=== PATIENT | male | born 1960 | race Caucasian/White ===

== ENCOUNTER 2017-11-25 10:33 | Inpatient (IN) | payer OTHER ==
[~2017-11-25] VITALS: Ht 185.4 cm; Wt 124.7 kg
[~2017-11-25 10:33] MED LIST: PHEN100C70; TOPI25TA84; [UNRECOGNIZED DRUG - CODE]
[2017-11-25 11:39] LABS: Eosinophils # (auto) 0.1 uL; Hemoglobin 17.4 g/dL (13.5-17.5)
[2017-11-25 11:41] LABS: Basophils # (auto) 0 uL; Basophils % (auto) 0.3 % (0.0-2.0); Eosinophils % (auto) 1.2 % (0.0-7.0); Lymphocytes # (auto) 0.7 uL; Lymphocytes % (auto) 14.1 % (10.0-50.0); Mean Corpuscular Hemoglobin 34.4 pg (28.0-32.0); Mean Corpuscular Hgb Conc. 34.1 g/dL (32.0-36.0); Mean Corpuscular Volume 100.9 fL (80.0-100.0); Monocytes # (auto) 0.6 uL; Monocytes % (auto) 11.1 % (0.0-12.0); Neutrophils # (auto) 3.7 uL; Neutrophils % (auto) 73.3 % (37.0-80.0); Nucleated Red Blood Cells % 0.1 %; Platelet Count (auto) 125 10^3/uL (140-450); Red Blood Cells 5.05 10^6/uL (4.5-5.90); Red Cell Distribution Width 17.2 % (11.8-14.3)
[2017-11-25 12:23] LABS: Alanine Aminotransferase 31 U/L (16-61); Albumin 3.7 g/dL (3.4-5.0); Alkaline Phosphatase 176 U/L (45-117); Anion Gap 8 (5-15); Aspartate Aminotransferase 29 U/L (15-37); BUN/Creatinine Ratio 12.1; Bilirubin, Total 0.4 mg/dL (0.2-1.0); Blood Urea Nitrogen 7 mg/dL (7-18); Calcium 8.8 mg/dL (8.5-10.1); Carbon Dioxide 21 mmol/L (21-32); Chloride 109 mmol/L (98-107); GFR African American 185 mL/min; GFR Non-African American 153 mL/min; Glucose 102 mg/dL (74-106); Potassium 3.8 mmol/L (3.5-5.1); Sodium 138 mmol/L (136-145); Total Protein 7.9 g/dL (6.4-8.2)
[2017-11-25] MEDS ORDERED: SODIUM CHLORIDE 0.9% 1,000 ML IVB ONE (13:14)
[2017-11-25 15:50] LABS: Urine Amorphous Crystal FEW /hpf (None Seen); Urine Bacteria FEW /hpf (None Seen); Urine Blood Negative /uL (Negative); Urine Mucus FEW (None Seen); Urine Specific Gravity 1.016 (1.001-1.035); Urine WBC 90 /hpf (0 - 3)
[2017-11-25] MEDS ORDERED: cefTRIAXone 1GM/10ml IVPUSH 10 ML IV ONE (16:45)
[2017-11-25] MEDS ORDERED: MORPHINE SULFATE 4 MG/ML SYR/VIAL IV PRN (17:00)
[2017-11-25] MEDS ORDERED: TEMAZEPAM 15 MG CAP PO PRN (17:00)
[2017-11-25] MEDS ORDERED: ACETAMINOPHEN 325 MG TAB PO PRN (17:00)
[2017-11-25] MEDS ORDERED: DOCUSATE SOD 100 MG CAP PO PRN (17:00)
[2017-11-25] MEDS ORDERED: ONDANSETRON HCL 4 MG/2 ML VIAL IV PRN (17:00)
[2017-11-25] MEDS ORDERED: HYDROcodone-ACET 5/325MG TAB PO PRN (17:00)
[2017-11-25] MEDS ORDERED: NITROGLYCERIN 0.4 MG SL TAB SL PRN (17:00)
[2017-11-25] MEDS ORDERED: LORazepam 2MG/ML-1ML VIAL IV PRN (17:30)
[2017-11-25] MEDS ORDERED: AZITHROMYCIN 500MG/ 250ML 250 ML IV ONE (17:30)
[2017-11-25 18:30] VITALS: BP 131/88
[2017-11-25] MEDS ORDERED: TOPI100T29 PO (18:49)
[2017-11-25] MEDS ORDERED: PHEN100C70 PO (18:49)
[2017-11-25] MEDS ORDERED: PHEN32.49 PO (18:49)
[2017-11-25 18:50] VITALS: BP 133/85
[2017-11-25 22:00] VITALS: BP 130/81
[2017-11-25] MEDS: PHENobarbital 32.4 MG TAB PO SCH (22:00)
[2017-11-25] MEDS: TOPIRAMATE 100 MG TAB PO SCH (22:00)
[2017-11-25] MEDS: PHENYTOIN SODIUM 100 MG CAP PO SCH (22:00)
[2017-11-25] MEDS: FAMOTIDINE 20 MG TAB PO SCH (22:00)
[2017-11-25] MEDS: SODIUM CHLOR 0.9% PF (SALINE LOCK) 10ML VIAL IV SCH (23:41)
[2017-11-26 04:52] VITALS: BP 137/84
[2017-11-26] MEDS: SODIUM CHLOR 0.9% PF (SALINE LOCK) 10ML VIAL IV SCH ×3 (06:59→22:23)
[2017-11-26 07:27] LABS: Basophils # (auto) 0 uL; Lymphocytes # (auto) 0.4 uL; White Blood Cell 4.5 10^3/uL (4.4-10.8)
[2017-11-26 07:29] LABS: Albumin 3.3 g/dL (3.4-5.0); Bilirubin, Total 0.4 mg/dL (0.2-1.0); Calcium 8.2 mg/dL (8.5-10.1); Total Protein 7.5 g/dL (6.4-8.2)
[2017-11-26 07:31] LABS: Basophils % (auto) 0.3 % (0.0-2.0); Eosinophils # (auto) 0 uL; Eosinophils % (auto) 1.1 % (0.0-7.0); Hematocrit 43.8 % (41.0-53.0); Hemoglobin 15.1 g/dL (13.5-17.5); Lymphocytes % (auto) 7.8 % (10.0-50.0); Mean Corpuscular Hemoglobin 34.5 pg (28.0-32.0); Mean Corpuscular Hgb Conc. 34.5 g/dL (32.0-36.0); Monocytes # (auto) 0.4 uL; Monocytes % (auto) 7.8 % (0.0-12.0); Neutrophils # (auto) 3.8 uL; Platelet Count (auto) 152 10^3/uL (140-450); Red Blood Cells 4.38 10^6/uL (4.5-5.90); Red Cell Distribution Width 16.8 % (11.8-14.3)
[2017-11-26 07:41] LABS: Potassium 4.6 mmol/L (3.5-5.1)
[2017-11-26 08:00] VITALS: BP 142/90
[2017-11-26] MEDS: cefTRIAXone 1GM/10ml IVPUSH 10 ML IV SCH (08:40)
[2017-11-26] MEDS: TOPIRAMATE 100 MG TAB PO SCH ×2 (08:41→22:23)
[2017-11-26] MEDS: MULTIPLE VITAMIN TAB PO SCH (08:41)
[2017-11-26] MEDS: PHENobarbital 32.4 MG TAB PO SCH ×2 (08:41→22:23)
[2017-11-26] MEDS: PHENYTOIN SODIUM 100 MG CAP PO SCH ×2 (08:41→22:23)
[2017-11-26] MEDS: FAMOTIDINE 20 MG TAB PO SCH ×2 (08:41→22:23)
[2017-11-26] MEDS: ENOXAPARIN SOD 40 MG/0.4 ML SYRINGE SC SCH (08:42)
[2017-11-26] MEDS ORDERED: AZITHROMYCIN 500MG/ 250ML 250 ML IV SCH (10:00)
[2017-11-26 12:20] VITALS: BP 121/78
[2017-11-26 17:00] VITALS: BP 149/81
[2017-11-26] MEDS: ALBUTEROL SULF 2.5 MG/0.5ML(0.5%) NEB SOLN NEB SCH (18:54)
[2017-11-26] MEDS: ACETYLCYSTEINE 10 %(100MG/ML) SOL 4ML NEB SCH (18:55)
[2017-11-26 22:00] VITALS: BP 135/83
[2017-11-26 22:46] VITALS: BP 149/81
[2017-11-27 05:00] VITALS: BP 131/78
[2017-11-27] MEDS: SODIUM CHLOR 0.9% PF (SALINE LOCK) 10ML VIAL IV SCH ×3 (05:34→21:30)
[2017-11-27] MEDS: ACETYLCYSTEINE 10 %(100MG/ML) SOL 4ML NEB SCH ×4 (06:18→18:44)
[2017-11-27] MEDS: ALBUTEROL SULF 2.5 MG/0.5ML(0.5%) NEB SOLN NEB SCH ×4 (06:18→18:44)
[2017-11-27 08:00] VITALS: BP 109/64
[2017-11-27] MEDS: MULTIPLE VITAMIN TAB PO SCH (09:42)
[2017-11-27] MEDS: cefTRIAXone 1GM/10ml IVPUSH 10 ML IV SCH (09:42)
[2017-11-27] MEDS: PHENobarbital 32.4 MG TAB PO SCH (09:42)
[2017-11-27] MEDS: PHENYTOIN SODIUM 100 MG CAP PO SCH (09:42)
[2017-11-27] MEDS: ENOXAPARIN SOD 40 MG/0.4 ML SYRINGE SC SCH (09:43)
[2017-11-27] MEDS: TOPIRAMATE 100 MG TAB PO SCH ×2 (09:43→21:31)
[2017-11-27] MEDS: FAMOTIDINE 20 MG TAB PO SCH ×2 (09:43→21:30)
[2017-11-27 12:00] VITALS: BP 127/82
[2017-11-27] MEDS ORDERED: VANCOMYCIN PER PHARMACY 0 MG IV SCH (16:15)
[2017-11-27 16:42] VITALS: BP 126/75
[2017-11-27] MEDS ORDERED: DOXY-216 PO (17:14)
[2017-11-27] MEDS ORDERED: VANCOMYCIN 1,250 MG in D5W 5% 250 ML IV ONE (17:15)
[2017-11-27 17:37] LABS: Phenytoin (Dilantin) 29.4 ug/mL (10-20)
[2017-11-27 20:00] VITALS: BP 121/70
[2017-11-27] MEDS: VANCOMYCIN 1,250 MG in D5W 5% 250 ML IV SCH (20:09)
[2017-11-27 22:00] VITALS: BP 121/70
[2017-11-28 05:00] VITALS: BP 130/86
[2017-11-28] MEDS: VANCOMYCIN 1,250 MG in D5W 5% 250 ML IV SCH ×2 (05:00→13:17)
[2017-11-28] MEDS: SODIUM CHLOR 0.9% PF (SALINE LOCK) 10ML VIAL IV SCH ×2 (06:00→14:09)
[2017-11-28] MEDS: ALBUTEROL SULF 2.5 MG/0.5ML(0.5%) NEB SOLN NEB SCH ×4 (07:02→18:56)
[2017-11-28] MEDS: ACETYLCYSTEINE 10 %(100MG/ML) SOL 4ML NEB SCH ×4 (07:02→18:56)
[2017-11-28 09:00] VITALS: BP 139/79
[2017-11-28 10:22] LABS: Phenytoin (Dilantin) 27.6 ug/mL (10-20)
[2017-11-28] MEDS: FAMOTIDINE 20 MG TAB PO SCH (11:00)
[2017-11-28] MEDS: MULTIPLE VITAMIN TAB PO SCH (11:00)
[2017-11-28] MEDS: ENOXAPARIN SOD 40 MG/0.4 ML SYRINGE SC SCH (11:01)
[2017-11-28] MEDS: TOPIRAMATE 100 MG TAB PO SCH (11:03)
[2017-11-28] MEDS ORDERED: LEVOFLOXACIN 500MG 100 ML IV ONE (12:00)
[2017-11-28 13:00] VITALS: BP 136/74
[2017-11-28 16:50] VITALS: BP 140/87
[2017-11-28] MEDS ORDERED: LEVO-28 PO (17:35)
[2017-11-28 18:02] VITALS: BP 140/87
[2017-11-29] MEDS ORDERED: LEVOFLOXACIN 500MG 100 ML IV SCH (10:00)
== END 2017-11-28 19:35 | disposition home health service (06) | DRG 689 ==
LOC: ER 10:33 → TELE 10:34 → TELE-WESTW 18:37
PROVIDERS: ADMIT Internal Medicine; ATTEND Hospitalist
DX: N39.0 Urinary tract infection, site not specified (principal); G93.41 Metabolic encephalopathy; Z93.0 Tracheostomy status; D69.6 Thrombocytopenia, unspecified; G81.94 Hemiplegia, unspecified affecting left nondominant side; J20.9 Acute bronchitis, unspecified; G40.909 Epilepsy, unspecified, not intractable, without status epilepticus; T42.0X5A Adverse effect of hydantoin derivatives, initial encounter; B95.7 Other staphylococcus as the cause of diseases classified elsewhere; B96.1 Klebsiella pneumoniae [K. pneumoniae] as the cause of diseases classified elsewhere; E66.9 Obesity, unspecified; Z82.49 Family history of ischemic heart disease and other diseases of the circulatory system; Z87.820 Personal history of traumatic brain injury; Z99.3 Dependence on wheelchair; Z79.899 Other long term (current) drug therapy; Z68.36 Body mass index [BMI] 36.0-36.9, adult; Y92.89 Other specified places as the place of occurrence of the external cause; Z74.01 Bed confinement status
CPT/HCPCS: 36415; 36600; 51702; 70450; 71046; 80053; 80184; 80185; 81001; 82140; 82565; 82805; 83605; 83880; 84443; 84484; 85025; 87040; 87070; 87077; 87086; 87088; 87186; 87205; 92610; 93005; 93306; 93886; 94640; 96361; 96365; 96375; 97163; J1956; J7060

== ENCOUNTER 2020-05-27 11:32 | Inpatient (IN) | payer OTHER ==
[~2020-05-27] VITALS: Ht 185.4 cm; Wt 127.4 kg
[~2020-05-27 11:32] MED LIST changes: +DOXY-286 PO; +LEVO-28 PO; -PHEN100C70; +PHEN100C70 PO; +PHEN32.44 PO; +TOPI100T29 PO; -TOPI25TA84; -[UNRECOGNIZED DRUG - CODE]
[2020-05-27 15:22] LABS: Eosinophils # (auto) 0.1 10 ^3/uL (0-0.8); Mean Corpuscular Volume 108.4 fL (80.0-100.0); Monocytes # (auto) 0.7 10 ^3/uL (0-1.3); Nucleated Red Blood Cells % 0.1 %
[2020-05-27 15:24] LABS: Basophils # (auto) 0 10 ^3/uL (0-0.2); Basophils % (auto) 0.5 % (0.0-2.0); Eosinophils % (auto) 2.4 % (0.0-7.0); Hematocrit 53.8 % (41.0-53.0); Hemoglobin 17.7 g/dL (13.5-17.5); Lymphocytes # (auto) 0.7 10 ^3/uL (0.4-5.4); Lymphocytes % (auto) 12.7 % (10.0-50.0); Mean Corpuscular Hemoglobin 35.6 pg (28.0-32.0); Mean Corpuscular Hgb Conc. 32.9 g/dL (32.0-36.0); Monocytes % (auto) 11.9 % (0.0-12.0); Neutrophils # (auto) 4.1 10 ^3/uL (1.6-8.6); Neutrophils % (auto) 72.5 % (37.0-80.0); Platelet Count (auto) 151 10^3/uL (140-450); Red Blood Cells 4.97 10^6/uL (4.5-5.90); Red Cell Distribution Width 15.9 % (11.8-14.3); White Blood Cell 5.6 10^3/uL (4.4-10.8)
[2020-05-27 15:52] LABS: Albumin 3.7 g/dL (3.4-5.0); Calcium 8.6 mg/dL (8.5-10.1); Potassium 3.8 mmol/L (3.5-5.1)
[2020-05-27 15:56] LABS: BUN/Creatinine Ratio 15.9; Bilirubin, Total 0.3 mg/dL (0.2-1.0); Lactic Acid w/Reflex 2.8 mmol/L (0.4-2.0); Total Protein 7.7 g/dL (6.4-8.2)
[2020-05-27] MEDS ORDERED: SODIUM CHLORIDE 0.9% 1,000 ML IV ONE ×2 (16:30)
[2020-05-27] MEDS ORDERED: CLINDAMYCIN 600MG IV 50 ML IV ONE (16:30)
[2020-05-27] MEDS ORDERED: cefTRIAXone 1GM/50ML D5W 50 ML IV ONE (16:30)
[2020-05-27] MEDS ORDERED: IOHEXOL 300 MG/ML 100ML BOTTLE IJ ONE (18:18)
[2020-05-27] MEDS ORDERED: SODIUM CHLORIDE 0.9% 1,000 ML IV SCH (19:45)
[2020-05-27] MEDS ORDERED: MORPHINE SULF INJ 2 MG/ML SYRINGE 1ML IV PRN (19:45)
[2020-05-27] MEDS ORDERED: NITROGLYCERIN 0.4 MG SL TAB SL PRN (19:45)
[2020-05-27] MEDS ORDERED: PHENYTOIN SODIUM 100 MG CAP PO SCH (22:00)
[2020-05-27] MEDS: TOPIRAMATE 100 MG TAB PO SCH (22:13)
[2020-05-28] MEDS ORDERED: VANCOMYCIN PER PHARMACY 0 MG IV SCH (00:30)
[2020-05-28] MEDS ORDERED: LACTATED RINGER'S 1,000 ML IV ONE (00:30)
[2020-05-28] MEDS ORDERED: MORPHINE SULF INJ 2 MG/ML SYRINGE 1ML IV PRN ×2 (01:00)
[2020-05-28] MEDS ORDERED: LORazepam 0.5 MG TAB PO PRN (01:00)
[2020-05-28] MEDS ORDERED: ACETAMINOPHEN 325 MG TAB PO PRN (01:00)
[2020-05-28] MEDS ORDERED: NITROGLYCERIN 0.4 MG SL TAB SL PRN (01:00)
[2020-05-28] MEDS ORDERED: HYDROcodone-ACET 5/325MG TAB PO PRN (01:00)
[2020-05-28] MEDS ORDERED: VANCOMYCIN 1GM/250ML 250 ML IV ONE (01:00)
[2020-05-28 01:22] VITALS: BP 128/71
[2020-05-28] MEDS: SODIUM CHLORIDE 0.9% 1,000 ML IV SCH ×3 (01:38→23:10)
[2020-05-28] MEDS: PIPERACILLIN-TAZOB 3.375GM 100 ML IV SCH ×4 (05:11→23:10)
[2020-05-28 05:21] VITALS: BP 114/73
[2020-05-28] MEDS ORDERED: CLINDAMYCIN 600MG IV 50 ML IV SCH (06:00)
[2020-05-28 09:00] VITALS: BP 128/71
[2020-05-28] MEDS ORDERED: CEFTRIAXONE SODIUM 2 GM in D5W 5% 50 ML IV SCH (10:00)
[2020-05-28] MEDS: TOPIRAMATE 100 MG TAB PO SCH ×2 (10:25→21:21)
[2020-05-28] MEDS: VANCOMYCIN 1GM/250ML 250 ML IV SCH ×2 (10:25→18:54)
[2020-05-28 13:00] VITALS: BP 141/91
[2020-05-28 17:00] VITALS: BP 138/77
[2020-05-28] MEDS ORDERED: IOHEXOL 350 MG/ML 100ML IJ ONE (17:08)
[2020-05-28 21:17] LABS: Urine Bacteria NONE SEEN /hpf (None Seen); Urine Blood Negative /uL (Negative); Urine Hyaline Cast FEW /lpf (0 - 2); Urine Specific Gravity 1.016 (1.001-1.035); Urine WBC 3 /hpf (0 - 3)
[2020-05-28] MEDS: PHENYTOIN SODIUM 100 MG CAP PO SCH (21:20)
[2020-05-28] MEDS: APIXABAN 5 MG TAB PO SCH (21:21)
[2020-05-28] MEDS: NYSTATIN TOPICAL POWDER 15GM TOP SCH (21:22)
[2020-05-28 21:31] LABS: Alcohol, Urine < 3.0 mg/dL (0-10); Amphetamine Screen, Urine NEGATIVE (NEGATIVE); Barbiturate Scree,Urine POSITIVE (NEGATIVE); Benzodiazephine Screen, Urine NEGATIVE (NEGATIVE); Cannabinoid Screen, Urine NEGATIVE (NEGATIVE); Cocaine Screen, Urine NEGATIVE (NEGATIVE); Opiate Scree,Urine NEGATIVE (NEGATIVE); Phencyclidine Screen, Urine NEGATIVE (NEGATIVE)
[2020-05-28 22:00] VITALS: BP 130/102
[2020-05-29] MEDS: VANCOMYCIN 1GM/250ML 250 ML IV SCH ×2 (02:08→10:44)
[2020-05-29 05:00] VITALS: BP 148/84
[2020-05-29] MEDS: PHENYTOIN SODIUM 100 MG CAP PO SCH ×2 (05:24→14:37)
[2020-05-29] MEDS: PIPERACILLIN-TAZOB 3.375GM 100 ML IV SCH ×2 (05:24→12:56)
[2020-05-29 09:00] VITALS: BP 142/78
[2020-05-29] MEDS: TOPIRAMATE 100 MG TAB PO SCH (10:45)
[2020-05-29] MEDS: NYSTATIN TOPICAL POWDER 15GM TOP SCH (10:45)
[2020-05-29] MEDS: APIXABAN 5 MG TAB PO SCH (10:45)
[2020-05-29 12:35] LABS: Lactic Acid w/Reflex 2.3 mmol/L (0.4-2.0)
[2020-05-29 13:00] VITALS: BP 119/75
[2020-05-29 13:16] LABS: Cholesterol 93 mg/dL (< 200); HDL Cholesterol 42 mg/dL (40-59); LDL Cholesterol 36 mg/dL (< 100); Triglycerides 81 mg/dL (< 150)
[2020-05-29] MEDS ORDERED: APIX5TAB PO (13:43)
[2020-05-29] MEDS ORDERED: LEVO-28 PO (13:43)
[2020-06-04] MEDS ORDERED: APIXABAN 5 MG TAB PO SCH (22:00)
== END 2020-05-29 16:00 | disposition home health service (06) | DRG 592 ==
LOC: ER 11:32 → TELE 11:33 → TELE-CENTR 23:59
PROVIDERS: ADMIT Hospitalist; ATTEND Hospitalist
DX: L89.324 Pressure ulcer of left buttock, stage 4 (principal); G82.50 Quadriplegia, unspecified; L03.317 Cellulitis of buttock; N39.0 Urinary tract infection, site not specified; I82.403 Acute embolism and thrombosis of unspecified deep veins of lower extremity, bilateral; L89.159 Pressure ulcer of sacral region, unspecified stage; E78.5 Hyperlipidemia, unspecified; E66.01 Morbid (severe) obesity due to excess calories; R74.8 Abnormal levels of other serum enzymes; D75.1 Secondary polycythemia; R09.02 Hypoxemia; G40.909 Epilepsy, unspecified, not intractable, without status epilepticus; Z99.3 Dependence on wheelchair; Z79.01 Long term (current) use of anticoagulants; Z74.01 Bed confinement status; Z90.49 Acquired absence of other specified parts of digestive tract; Z68.34 Body mass index [BMI] 34.0-34.9, adult
CPT/HCPCS: 36415; 71275; 72193; 80053; 80061; 80185; 80202; 80307; 81001; 82565; 83036; 83605; 84484; 85025; 87040; 87077; 87086; 87186; 93970; 96365; 96367; G0378; J0696; J2543; J3490; J7060

== ENCOUNTER 2020-08-01 10:18 | Inpatient (IN) | payer OTHER ==
[~2020-08-01] VITALS: Ht 185.4 cm; Wt 119.3 kg
[~2020-08-01 10:18] MED LIST changes: +APIX5TAB PO; -DOXY-286 PO; -PHEN100C70 PO
[2020-08-01] MEDS ORDERED: AZITHROMYCIN 500MG/ 250ML 250 ML IV ONE (10:45)
[2020-08-01] MEDS ORDERED: cefTRIAXone 1GM/50ML D5W 50 ML IV ONE (10:45)
[2020-08-01 12:23] LABS: Basophils # (auto) 0 10 ^3/uL (0-0.2); Basophils % (auto) 0.1 % (0.0-2.0); Hemoglobin 13.2 g/dL (13.5-17.5); Monocytes # (auto) 0.5 10 ^3/uL (0-1.3)
[2020-08-01 12:24] LABS: Eosinophils # (auto) 0.1 10 ^3/uL (0-0.8); Eosinophils % (auto) 0.7 % (0.0-7.0); Hematocrit 38.8 % (41.0-53.0); Lymphocytes # (auto) 0.4 10 ^3/uL (0.4-5.4); Lymphocytes % (auto) 4.2 % (10.0-50.0); Mean Corpuscular Hgb Conc. 34.1 g/dL (32.0-36.0); Mean Corpuscular Volume 105.6 fL (80.0-100.0); Monocytes % (auto) 5.2 % (0.0-12.0); Neutrophils # (auto) 8.1 10 ^3/uL (1.6-8.6); Neutrophils % (auto) 89.8 % (37.0-80.0); Nucleated Red Blood Cells % 0.1 %; Platelet Count (auto) 246 10^3/uL (140-450); Red Blood Cells 3.67 10^6/uL (4.5-5.90); Red Cell Distribution Width 16.5 % (11.8-14.3)
[2020-08-01 12:37] LABS: INR 1.33 (0.9-1.15); Partial Thromboplastin Time 41.6 sec (23.0-31.2)
[2020-08-01 12:45] LABS: Albumin 2.7 g/dL (3.4-5.0); Anion Gap 7 (5-15); Blood Urea Nitrogen 18 mg/dL (7-18); Calcium 8.2 mg/dL (8.5-10.1); Carbon Dioxide 25 mmol/L (21-32); Chloride 125 mmol/L (98-107); Glucose 141 mg/dL (74-106); Sodium 157 mmol/L (136-145)
[2020-08-01] MEDS ORDERED: SODIUM CHLORIDE 0.9% 1,000 ML IV ONE (12:45)
[2020-08-01 12:52] LABS: Alanine Aminotransferase 25 U/L (16-61); Alkaline Phosphatase 101 U/L (45-117); Aspartate Aminotransferase 16 U/L (15-37); BUN/Creatinine Ratio 17.1; Bilirubin, Total 0.6 mg/dL (0.2-1.0); GFR African American 92 mL/min; GFR Non-African American 76 mL/min; Lactate Dehydrogenase 206 U/L (87-241); Total Protein 6.9 g/dL (6.4-8.2)
[2020-08-01 13:13] LABS: Potassium 2.6 mmol/L (3.5-5.1)
[2020-08-01 13:31] LABS: CRP High Sensitivity > 19.0 mg/dL (< 0.3)
[2020-08-01] MEDS ORDERED: ACETAMINOPHEN 650 MG RECT SUPP PR ONE (15:30)
[2020-08-01] MEDS: POTASSIUM CHL 20MEQ/100ML 100 ML IV SCH ×2 (15:34→17:44)
[2020-08-01 15:52] LABS: Urine Bacteria MANY /hpf (None Seen); Urine Blood 2+ /uL (Negative); Urine Mucus FEW (None Seen); Urine Specific Gravity 1.019 (1.001-1.035); Urine WBC 32 /hpf (0 - 3)
[2020-08-01] MEDS ORDERED: MORPHINE SULF INJ 2 MG/ML SYRINGE 1ML IV PRN (17:15)
[2020-08-01] MEDS ORDERED: NITROGLYCERIN 0.4 MG SL TAB SL PRN (17:15)
[2020-08-01] MEDS: SOD CHL 0.45% 1,000 ML IV SCH (17:44)
[2020-08-01] MEDS ORDERED: IOHEXOL 350 MG/ML 100ML IJ ONE (18:23)
[2020-08-01 20:08] LABS: BUN/Creatinine Ratio 24.1; Calcium 7.6 mg/dL (8.5-10.1); Potassium 3.1 mmol/L (3.5-5.1)
[2020-08-01 20:13] VITALS: BP 116/74
[2020-08-01] MEDS: levoFLOXacin 500MG 100 ML IV SCH (20:33)
--- NOTE | 2020-08-01 20:44 | NUR ---
Telemetry admit from ER AJAY GARCIA admitted to Telemetry unit after SBAR received by Saniya FERNÁNDEZ. Patient oriented to EDDIE kamara RN, unit, room, bed, and unit policies regarding patient care and visiting hours. Patient placed on bedside oxygen 4 L/min via nasal cannula, weighed by bedscale and encouraged to call if they need something. All questions and concerns addressed, patient verbalized understanding.
[2020-08-01 20:48] VITALS: BP 112/74
[2020-08-01] MEDS ORDERED: INFLUENZA QUAD 2020-2021 0.5 ML SYRG IM ONE (21:15)
[2020-08-01] MEDS: CLINDAMYCIN 600MG IV 50 ML IV SCH (21:40)
[2020-08-01] MEDS: ENOXAPARIN SOD 120 MG/0.8 ML SYRINGE SC SCH (21:40)
[2020-08-01] MEDS ORDERED: ALBUTEROL SULF HFA 90MCG INH 200DOSE IN SCH (22:00)
--- NOTE | 2020-08-01 23:04 | NUR ---
Dr. Faye Venegas at bedside. New order received for surgical consult for sacral wounds. See order history.
--- NOTE | 2020-08-01 23:59 | NUR ---
Admission wound photos taken. Wounds cleaned with normal saline and patted dry with sterile gauze, new Optifoam applied to left sacrum and left buttock. Repositioned for comfort, pillows placed under bilateral heels. Patient tolerated well.
[2020-08-02 02:58] LABS: BUN/Creatinine Ratio 25.3; Calcium 7.9 mg/dL (8.5-10.1)
[2020-08-02 03:04] LABS: Potassium 2.7 mmol/L (3.5-5.1)
--- NOTE | 2020-08-02 03:11 | NUR ---
Critical lab received Potassium 2.7. Called and left a message with Wiley Venegas to inform him of current potassium level.
[2020-08-02] MEDS: SOD CHL 0.45% 1,000 ML IV SCH (03:15)
--- NOTE | 2020-08-02 03:30 | NUR ---
Dr. Kamilla Venegas is aware of current potassium level. New orders received for 2 bags of 20 Meq K-riders and labs. See eMAR and order history.
[2020-08-02] MEDS: POTASSIUM CHL 20MEQ/100ML 100 ML IV SCH ×6 (04:06→17:23)
[2020-08-02] MEDS: CLINDAMYCIN 600MG IV 50 ML IV SCH ×3 (04:17→19:33)
[2020-08-02 05:00] VITALS: BP 124/76
--- NOTE | 2020-08-02 07:30 | NUR ---
Opening Shift Note Assumed care of patient, awake and alert. No S/S of distress/SOB or pain on 4 LPM via nasal cannula. Instructed on POC and to call for assist PRN, will continue to monitor for changes Q1hr and PRN. Bed in low and locked position, rails up x2, no-slip socks on. Repositioned to relieve pressure off bony prominences.
--- NOTE | 2020-08-02 08:21 | NUR ---
AIR MATTRESS: Air mattress ordered at [facility] 08/02/20 @ 1413, Reference# [id number]. Call [facility] at [phone] if needed to follow up. Addendum: 08/02/20 at 0822 by Dori Paulino RN Amended: Links added.
[2020-08-02 08:56] VITALS: BP 126/66
[2020-08-02 09:12] LABS: Basophils # (auto) 0 10 ^3/uL (0-0.2); Eosinophils # (auto) 0.1 10 ^3/uL (0-0.8); Lymphocytes # (auto) 0.3 10 ^3/uL (0.4-5.4); Lymphocytes % (auto) 5.2 % (10.0-50.0); Monocytes # (auto) 0.2 10 ^3/uL (0-1.3); Nucleated Red Blood Cells % 0.1 %; White Blood Cell 5.9 10^3/uL (4.4-10.8)
[2020-08-02 09:14] LABS: Basophils % (auto) 0.3 % (0.0-2.0); Eosinophils % (auto) 1.5 % (0.0-7.0); Hematocrit 35.7 % (41.0-53.0); Mean Corpuscular Hemoglobin 35.7 pg (28.0-32.0); Mean Corpuscular Hgb Conc. 33.8 g/dL (32.0-36.0); Mean Corpuscular Volume 105.5 fL (80.0-100.0); Monocytes % (auto) 4.1 % (0.0-12.0); Neutrophils # (auto) 5.2 10 ^3/uL (1.6-8.6); Neutrophils % (auto) 88.9 % (37.0-80.0); Platelet Count (auto) 202 10^3/uL (140-450); Red Blood Cells 3.38 10^6/uL (4.5-5.90); Red Cell Distribution Width 16.2 % (11.8-14.3)
[2020-08-02 09:25] LABS: BUN/Creatinine Ratio 22.5; Calcium 7.9 mg/dL (8.5-10.1)
--- NOTE | 2020-08-02 09:30 | NUR ---
DR Marcie GRANT AT BEDSIDE ORDERS ADDED IN [facility] 10/12 SOLUTION FOR WOUND CARE. PER MD, WOUND IS NON SURGICAL AT THIS POINT.
[2020-08-02] MEDS ORDERED: DAKINS QUARTER STR 0.125% (NaHypochlorite) 473 ML TOPICAL SOL TOP ONE (09:45)
[2020-08-02] MEDS: DexAMETHasone SOD PHOS 10MG/1ML VIAL INJ IV SCH (09:46)
[2020-08-02] MEDS: ENOXAPARIN SOD 120 MG/0.8 ML SYRINGE SC SCH (09:46)
--- NOTE | 2020-08-02 11:00 | NUR ---
DR NOONAN AT BEDSIDE NEW ORDERS ADDED
[2020-08-02] MEDS: D5W 5% 1,000 ML IV SCH (11:09)
--- NOTE | 2020-08-02 11:25 | NUR ---
URINE SPECIMEN COLLECTED
[2020-08-02 11:49] LABS: Urine Bacteria NONE SEEN /hpf (None Seen); Urine Blood 2+ /uL (Negative); Urine WBC 23 /hpf (0 - 3)
--- NOTE | 2020-08-02 11:58 | NUR ---
Nutrition Consult/assessment Note Please see attached link for complete assessment Est energy needs ABW 99 [id number] kcal (23-25 kcal/kg ABW), Est protein needs: 99-119 g (1.0-1.2g/kg ABW r/t wounds) Will reassess prn. Addendum: 08/02/20 at [address] Amended: Links added.
[2020-08-02 12:02] LABS: Protein, Urine 124.2 mg/dL (0.0-11.9)
--- NOTE | 2020-08-02 12:10 | NUR ---
WOUND CARE NOTE: Wound care in to see patient per wound care request regarding multiple pressure injuries that are noted present on admission. Patient is 60 y/o male admitted for Fever. Patient is resting in bed in Rm. 284B. He's awake, alert and oriented. Patient is in no stated pain a t this time and he appears to be in no pain using Murcia Aquino Faces Pain Scale. Patient is bedridden history of CVA. He's max assist in turning and repositioning. His Mehran score is 13. Skin/wound assessment done with the assistance of patient's nurse, JOLENE Renee. Patient's L sacrum noted with 5x3x0.3cm open full thickness wound. Wound bed is dusky red,pale pink with yellow slough, kamryn wound is pink scar tissue. Medial scarum has deep indentation and Rt sacrum has raised pink collagen scar tissue/growth. To left buttock is [id number] necrotic wound. Wound is red with yellow and black soft slough at center with tiny (0.5x0.5cm) opening that probes at depth of 1cm, draining purulent drainage. Patient has history of pressure injury to L sacral/buttocks. Patient's inner thighs, groins noted with moist, mild redness/intertrigo. His L posterior thigh noted with 5x1cm open partial thickness pressure injury. Kamryn care given, cleansed L sacral, L buttock wounds with Dakin's irrigant. Applied Z Guard cream to L Posterior thigh, sacrum and inner thighs. Applied Dakin's soaked gauze to open wound to L sacral and L buttocks per Dr. Portillo's order. Covered wounds with Opti foam gentle dressing. Repositioned patient for comfort facing his Rt. side, redistributed pressure points with pillows. Patient tolerated well. JOLENE Renee at bedside. RECOMMENDATION: Nursing to continue with Daily/PRN dressing to L sacral, L buttock wounds, BID/PRN cleaning and application of Z Guard cream to sacrum, posterior and medial thighs and groins per MD order, Dietary consult, surgical consult, frequent turning and repositioning schedule as condition permits, redistribute pressure points with pillows, air mattress (ordered), continue monitoring by wound care while patient is hospitalized. Addendum: 08/02/20 at 1601 by Dori Paulino RN Amended: Links added.
[2020-08-02 12:28] VITALS: BP 117/57
--- NOTE | 2020-08-02 12:53 | NUR ---
Covering Lunch for JOLENE Renee, Spoke to Dr. Faye Burns. Orders for Tylenol received, read back and verified.
[2020-08-02] MEDS ORDERED: ACETAMINOPHEN 325 MG TAB PO PRN (13:00)
--- NOTE | 2020-08-02 13:30 | NUR ---
DR Nishi CASANOVA AT BEDSIDE NEW ORDERS ADDED
[2020-08-02] MEDS ORDERED: TOPI100T68 PO (14:15)
[2020-08-02] MEDS ORDERED: PHEN100C70 PO (14:15)
[2020-08-02] MEDS: PANTOPRAZOLE 40 MG TAB PO SCH (14:15)
[2020-08-02 14:50] LABS: Calcium 8.1 mg/dL (8.5-10.1); Potassium 3.8 mmol/L (3.5-5.1)
[2020-08-02 16:55] VITALS: BP 127/75
[2020-08-02] MEDS: levoFLOXacin 500MG 100 ML IV SCH (18:18)
--- NOTE | 2020-08-02 18:29 | NUR ---
SWALLOW EVAL AT BEDSIDE RECOMMEND PUREE DIET AND THIN LIQUIDS, ORDERS ADDED PER DR Nishi CASANOVA REQUEST, PATIENT TOLERATED IT WELL.
--- NOTE | 2020-08-02 18:34 | NUR ---
SWALLOW EVALUATED. PATIENT ABLE TO FOLLOW COMMANDS. PATIENT HAS NO TEETH OR DENTURES. PATIENT COUGHED PRIOR TO EVALUATION 2D PNEUMONIA. PATIENT ABLE TO TOLERATE PUREE DIET TEXTURE WITH THIN LIQUIDS WITH NO OVERT SIGNS OR SYMPTOMS OF ASPIRATION. NURSING NOTIFIED.
--- NOTE | 2020-08-02 19:30 | NUR ---
OPENING NOTE Received report from day shift RN. Patient is A&O X's 4 with no s/s of distress and reports no pain. Patient currently eating dinner with help of TRUCK CLEANER and tolerating well. Patient receiving 2L O2 via N.C. Educated patient on POC and to use call light when in need of any assistance. Bed is in lowest/locked position with padded side rails up X's 2 and call light is within reach of patient. HOB elevated, maintaining aspirating precautions. Will continue care and turn Q2H.
[2020-08-02 21:00] VITALS: BP_SYST 108; BP_SYST 114; BP_DIAS 60; BP_DIAS 65
[2020-08-02 21:00] LABS: BUN/Creatinine Ratio 23.6; Calcium 7.9 mg/dL (8.5-10.1); Potassium 3.4 mmol/L (3.5-5.1)
[2020-08-02] MEDS: TOPIRAMATE 100 MG TAB PO SCH (21:49)
[2020-08-02] MEDS: PHENYTOIN SODIUM 100 MG CAP PO SCH (21:49)
[2020-08-02] MEDS: APIXABAN 5 MG TAB PO SCH (21:49)
[2020-08-02] MEDS: PHENobarbital 20 MG/5 ML UD PO SCH (21:50)
[2020-08-03] MEDS: D5W 5% 1,000 ML IV SCH ×2 (00:15→05:52)
[2020-08-03 01:42] LABS: Calcium 7.4 mg/dL (8.5-10.1); Potassium 3.1 mmol/L (3.5-5.1)
[2020-08-03 01:44] LABS: BUN/Creatinine Ratio 22.8
[2020-08-03] MEDS: CLINDAMYCIN 600MG IV 50 ML IV SCH ×3 (03:42→19:34)
--- NOTE | 2020-08-03 04:54 | NUR ---
REPOSITIONING Patient was repositioned again at this time. All dressings to sacrum and thigh are CDI. NO drainage noted. Patient tolerated well. HOB remains elevated. Aspiration and seizure precautions in place. Pillows under pressure areas and heels elevated. Call light within reach of patient. Will continue care.
[2020-08-03 05:00] VITALS: BP 136/67
[2020-08-03 06:15] LABS: Basophils # (auto) 0 10 ^3/uL (0-0.2); Lymphocytes # (auto) 0.3 10 ^3/uL (0.4-5.4); Monocytes # (auto) 0.2 10 ^3/uL (0-1.3); Neutrophils # (auto) 4.8 10 ^3/uL (1.6-8.6); White Blood Cell 5.4 10^3/uL (4.4-10.8)
[2020-08-03 06:17] LABS: Basophils % (auto) 0.8 % (0.0-2.0); Eosinophils # (auto) 0 10 ^3/uL (0-0.8); Eosinophils % (auto) 0.6 % (0.0-7.0); Hematocrit 35.1 % (41.0-53.0); Hemoglobin 11.8 g/dL (13.5-17.5); Lymphocytes % (auto) 5.5 % (10.0-50.0); Mean Corpuscular Hemoglobin 35.3 pg (28.0-32.0); Mean Corpuscular Hgb Conc. 33.5 g/dL (32.0-36.0); Mean Corpuscular Volume 105.3 fL (80.0-100.0); Monocytes % (auto) 3.7 % (0.0-12.0); Neutrophils % (auto) 89.4 % (37.0-80.0); Nucleated Red Blood Cells % 0.1 %; Platelet Count (auto) 217 10^3/uL (140-450); Red Blood Cells 3.33 10^6/uL (4.5-5.90); Red Cell Distribution Width 16.2 % (11.8-14.3)
--- NOTE | 2020-08-03 06:31 | NUR ---
POSITIVE BLOOD CULTURES - LEFT MESSAGE WITH MD Left message with MD Faye Venegas for results of positive blood cultures. Awaiting call back. Will inform day shift RN as well
--- NOTE | 2020-08-03 06:35 | NUR ---
RECEIVED CALL BACK FROM MD He was informed of positive blood culture. Per MD, just monitor for now. No new orders received.
[2020-08-03 06:39] LABS: Potassium 3.1 mmol/L (3.5-5.1)
[2020-08-03 06:52] LABS: BUN/Creatinine Ratio 26.1; Calcium 8.3 mg/dL (8.5-10.1); Magnesium 2.8 mg/dL (1.6-2.6)
--- NOTE | 2020-08-03 08:00 | NUR ---
RECEIVED PATIENT ALERT AND ORIENTED X3, SLOW SPEECH NOTED, SEIZURE AND ASPIRATION PRECAUTION, NOT IN DISTRESS, DIMINISHED LS IN BILATERAL UPPER AND LOWER LUNG LOBES, RR=16 SAT=95% WITH O2 4L NC, DEEP BREATHING AND COUGHING WAS ENCOURAGED, DEMONSTRATED UNDERSTANDING, DENIED CHEST PAIN AND SOB, HEART R=98, ABDOMEN SOFT WITH ACTIVE BS, LAST BM =07/31/20 REPORTED, MANLEY CATH IN PLACE AND PATENT, DRAINING CLEAR YELLOW URINE, SACRAL RT. AND LT. BUTTOCKS AND THIGH WOUNDS COVERED WITH DRY AND INTACT DRESSINGS, SKIN KEEP CLEAN AND DRY, BILATERAL UPPER AND LOWER EXTREMITIES NONE PITTING EDEMA NOTED, LT. UPPER AND LOWER EXTREMITIES FLUXED , RADIAL AND PEDAL PULSES PALPABLE, CAP REFILL <3 SECONDS, RESTING ON BED, HEAD OF BED ELEVATED, BED ON LOW POSITION, RAILS UP X2, CALL LIGHT ON REACH, WILL CONTINUE MONITORING.
[2020-08-03 09:41] VITALS: BP 124/74
[2020-08-03] MEDS: PHENobarbital 20 MG/5 ML UD PO SCH ×2 (10:00→21:38)
[2020-08-03] MEDS: DexAMETHasone SOD PHOS 10MG/1ML VIAL INJ IV SCH (10:20)
[2020-08-03] MEDS: TOPIRAMATE 100 MG TAB PO SCH ×2 (10:21→21:37)
[2020-08-03] MEDS: PANTOPRAZOLE 40 MG TAB PO SCH (10:21)
[2020-08-03] MEDS: APIXABAN 5 MG TAB PO SCH ×2 (10:21→21:37)
[2020-08-03] MEDS: PHENYTOIN SODIUM 100 MG CAP PO SCH ×2 (10:21→21:37)
[2020-08-03 12:34] LABS: Potassium 3.1 mmol/L (3.5-5.1)
[2020-08-03 12:45] LABS: BUN/Creatinine Ratio 21.3; Calcium 8.4 mg/dL (8.5-10.1)
[2020-08-03 13:00] VITALS: BP 148/94
[2020-08-03] MEDS: POTASSIUM CHL 20MEQ/100ML 100 ML IV SCH ×2 (13:03→14:13)
[2020-08-03] MEDS: POTASSIUM CHLORIDE 20 MEQ in D5W 5% 1,000 ML IV SCH ×2 (13:04→17:37)
--- NOTE | 2020-08-03 14:17 | NUR ---
Assessment Patient is a 60-year old male. Assessment was completed with patient brother Celestino ). Per Celestino prior to admission patient lived home with him. Celestino is patient caregiver. Per Celestino he helps patient with his ADL's. Per Celestino patient has a hospital bed, wheelchair and bedside commode. Per Celestino patient will return home to his prior living arrangements post discharge and [place] transportation to be arranged. Advised Celestino there is a social service consult for home health wound care. Celestino informed me patient is on service with [facility] and would like to continue services with agency. Informed Celestino he has the right to participate in all discharge planning. Celestino verbalized understanding and agreed to discharge plan. [facility] requesting authorization for agency. Geo Escudero with [facility] patient has been accepted and service to start within 24-48hrs upon d/c day. Addendum: 08/03/20 at 1418 by OLI OLIVER Amended: Links added.
--- NOTE | 2020-08-03 15:34 | NUR ---
Contacted brother, Celestino, regarding SS consult for hospice. Celestino stated the provider did mention hospice to him but did not explain fully why pt needed it. Explained hospice program, services provided, and agency choices. Celestino stated he needed to think it over and if pt was discharged today. Noted there was no discharge order in pt's records and for him to contact me first thing in the am regarding his decision. Will follow up and provide intervention as appropriate at that time.
[2020-08-03] MEDS ORDERED: POTASSIUM EFFERVESENT TAB 25 MEQ PO ONE (16:00)
--- NOTE | 2020-08-03 16:00 | NUR ---
WOUND DRESSING CHANGE ATTEMPTED AND PROVIDED, PATIENT REFUSED, POSITION CHANGE Q2 HOURS PROVIDED, SKIN KEEP CLEAN AND DRY, TOLERATED WELL, RESTING ON BED, NOT IN DISTRESS, SS CONTACTED FOR PENDING D/C PROCESS FOLLOW UP, WILL CONTINUE MONITORING.
[2020-08-03 17:00] VITALS: BP 136/81
[2020-08-03] MEDS: levoFLOXacin 500MG 100 ML IV SCH (17:37)
--- NOTE | 2020-08-03 19:14 | NUR ---
DIETARY called and left message for a pureed tray
[2020-08-03 19:24] LABS: BUN/Creatinine Ratio 20.3; Potassium 3.7 mmol/L (3.5-5.1)
--- NOTE | 2020-08-03 19:25 | NUR ---
RESTING ON BED, HEAD OF BED ELEVATED, BED ON LOW POSITION, RAILS UP X2, CALL LIGHT ON REACH, WILL CONTINUE MONITORING, PHARMACY BROUGHT 10 COUNT BOTTLES OF 20MG/5ML PHENOBARBITAL, HANDED TO THE BANKMAN RN, REPORT WAS GIVEN TO THE BANKMAN RN.
--- NOTE | 2020-08-03 19:35 | NUR ---
OPENING NOTE Received report from day shift RN. Patient is A&O X's 4 with no s/s of distress and reports no pain. Patient currently eating dinner with help of ELECTRONIC TRAIN CONTROL TECHNICIAN and tolerating well. Patient receiving 2L O2 via N.C. Educated patient on POC and to use call light when in need of any assistance. Bed is in lowest/locked position with padded side rails up X's 2 and call light is within reach of patient. HOB elevated, maintaining aspirating precautions. Will continue care and turn Q2H.
[2020-08-03 22:00] VITALS: BP 125/68
--- NOTE | 2020-08-03 22:00 | NUR ---
WOUND CARE Daily wound care done at this time to sacrum/buttock and thigh as ordered. Patient tolerated well. Will continue to turn patient Q2HR and maintain aspiration precautions.
--- NOTE | 2020-08-04 01:41 | NUR ---
WOUND CARE Dressings removed from left buttock and sacrum. Sanguinous drainage noted from wound on sacrum. Brown drainage noted from left buttock wound. Both wounds cleansed with wound cleanser, and patted dry with sterile gauze. Redressed according to orders. Patient tolerated well. repositioned onto left side. Bed returned to lowest locked position with HOB elevated. Addendum: 08/05/20 at 0149 by DOROTEO COLLADO RN RN wrong date. Correct date is 08/05/20.
[2020-08-04 01:57] LABS: BUN/Creatinine Ratio 19.7; Potassium 3.6 mmol/L (3.5-5.1)
[2020-08-04] MEDS ORDERED: POTASSIUM CHL 20MEQ/100ML 100 ML IV ONE ×2 (03:11→13:45)
[2020-08-04] MEDS: POTASSIUM CHLORIDE 20 MEQ in D5W 5% 1,000 ML IV SCH ×3 (03:29→22:09)
[2020-08-04] MEDS: CLINDAMYCIN 600MG IV 50 ML IV SCH ×2 (04:04→13:05)
[2020-08-04 05:44] VITALS: BP 130/71
[2020-08-04 06:29] LABS: Calcium 8.1 mg/dL (8.5-10.1); Potassium 3.3 mmol/L (3.5-5.1)
[2020-08-04 06:32] LABS: BUN/Creatinine Ratio 23.7
--- NOTE | 2020-08-04 06:38 | NUR ---
END OF SHIFT NOTE Full linen change done at this time. Patient was repositioned and pillows under legs. Dressings to sacrum and thigh are C/D/I. HOB remains elevated. No s/s of distress and patient reports no pain.
[2020-08-04 09:00] VITALS: BP 99/64
--- NOTE | 2020-08-04 09:28 | NUR ---
Contacted brother regarding hospice evaluation order per MD. Brother declines hospice and wants to bring his brother home on home health. Home Health arrangements completed on yesterday with [facility]. Per brother he will transport the patient home when discharged. No further SS concerns or needs at this time.
[2020-08-04] MEDS: DexAMETHasone SOD PHOS 10MG/1ML VIAL INJ IV SCH (10:46)
[2020-08-04] MEDS: PHENobarbital 20 MG/5 ML UD PO SCH ×2 (10:47→22:09)
[2020-08-04] MEDS: PHENYTOIN SODIUM 100 MG CAP PO SCH ×2 (10:48→22:09)
[2020-08-04] MEDS: APIXABAN 5 MG TAB PO SCH ×2 (10:48→22:10)
[2020-08-04] MEDS: TOPIRAMATE 100 MG TAB PO SCH ×2 (10:48→22:10)
[2020-08-04] MEDS: PANTOPRAZOLE 40 MG TAB PO SCH (10:49)
[2020-08-04 13:00] VITALS: BP 96/56
[2020-08-04] MEDS ORDERED: LEVO-28 PO (13:39)
[2020-08-04] MEDS ORDERED: CLIN300C8 PO (13:39)
[2020-08-04] MEDS ORDERED: VANCOMYCIN 1GM/250ML 250 ML IV SCH (13:45)
[2020-08-04] MEDS ORDERED: POTASSIUM EFFERVESENT TAB 25 MEQ PO ONE (13:45)
--- NOTE | 2020-08-04 14:25 | NUR ---
Nutrition Followup Note Ptm wt is 35.4 kg Pt was awake, very weak when rounded this morning. Pt was not able to answer questions effectively. Pt is with a Cardiac 2gNa diet, appetite is poor aeb ave 20% PO intake per RN doc. Noted pt is with ulcers on his back. Refer to nutrition recommendations noted below under Comments. Est energy needs ABW 99 [id number] kcal (23-25 kcal/kg ABW), Est protein needs: 99-119 g (1.0-1.2g/kg ABW r/t wounds) Will reassess prn. LABS: CA 8.1 L, NA 151 H, K 3.3 L, ALB 2.7 L GI: Pt with no reported BM today per RN doc. BS: 10 high risk. Refer to Wound Assessment report for further details. PES: 1) Altered nutrition related lab values r.t current chronic medical condition aeb elev BUN hyperglycemia hypocalcemia, mod hypoalb 2) Decreased nutrient needs r/t adiposity aeb t`s high BMI of 33.3 kgm2 Comments Will continue to monitor PO status, skin status, pertinent labs and weight trends. Will f/u in 3-5 days. 1) Advance diet as medically feasible 2) Consider MVI/C bid 3) Refer to OPD dietitian on DC 4) Continue current plan of care
--- NOTE | 2020-08-04 14:44 | NUR ---
I received a call from [facility] Recycle Worker Sangeeta ([phone]) letting me know that Dr. Venegas placed an order for home IV ATB. I faxed home IV ATB order to [facility], [facility] ([facility] had already been set up for wound care-per Sangeeta she called and spoke with Kena, they will be able to see patient for home IV ATB as well), and [facility]. Patient's PICC line has not been placed yet.
[2020-08-04] MEDS ORDERED: VANCOMYCIN PER PHARMACY 0 MG IV SCH (14:45)
[2020-08-04] MEDS ORDERED: VANCOMYCIN 1GM/250ML 250 ML IV ONE (15:00)
--- NOTE | 2020-08-04 15:01 | NUR ---
D/C Planning Faxed updated order to [facility] regarding IV abx. Per Kena with [facility] order has been received and they will see patient within 24-48hrs upon d/c day. Patient brother Celestino informed me he will be able to assist with the IV abx when needed.
--- NOTE | 2020-08-04 15:31 | NUR ---
I received a call from [facility] letting me know that they received the order and they are processing it-she will give me a call back regarding delivery time (will be sometime this evening).
--- NOTE | 2020-08-04 16:12 | NUR ---
Second page, spoke to PICC line nurse. She will try to squeeze patient in tonight. No one office administration instructor tonight.
--- NOTE | 2020-08-04 16:15 | NUR ---
CHOICE authorization number for [facility] is [id number], and CHOICE authorization number for [facility] is [id number] (per [facility] Raisin Separator Operator Sangeeta).
--- NOTE | 2020-08-04 16:16 | NUR ---
Dr. Mackenzie at bedside. Orders received, read back and verified. Patient is not cleared for discharge. Decubitus is deep and needs more assessment. Orders for MRI for decubitus of pelvic/sacral region. Dr. Mackenzie also spoke to the surgeon, he agrees to get MRI of patient. Also, ordered to hold off on PICC line tonight until after MRI. Will page MRI to update.
--- NOTE | 2020-08-04 16:44 | NUR ---
I spoke with patient's nurse who let me know that Dr. Mackenzie is not clearing the patient for discharge-wants MRI of decubitus done-no discharge today. I called [facility] [phone] and spoke with Babita to make her aware. I also called [facility] Architecture Department Chair Sangeeta and made her aware that everything was set up, but that Dr. Mackenzie is not clearing the patient for discharge today.
[2020-08-04 17:00] VITALS: BP 100/60
[2020-08-04 17:28] LABS: BUN/Creatinine Ratio 18.1; Calcium 7.6 mg/dL (8.5-10.1); Potassium 3.9 mmol/L (3.5-5.1)
--- NOTE | 2020-08-04 19:40 | NUR ---
OPENING SHIFT NOTE Assumed care of patient who is A&O, but slow to respond. Currently on 2L NC with no s/s of distress. Denies pain at this time. Midline in left upper arm is intact and patent. Currently infusing IVF as ordered. Roche catheter in place and patent. Tubing is free from kinks and collection bag is hung below the level of the bladder. Draining clear yellow urine to gravity. Bed is in low locked position with side rails up x2. Call light is within reach and patient encouraged to call for assistance when needed. Will continue to monitor for changes PRN.
[2020-08-04 20:15] LABS: Anion Gap 10 (5-15); BUN/Creatinine Ratio 17.9; Blood Urea Nitrogen 12 mg/dL (7-18); Calcium 7.7 mg/dL (8.5-10.1); Carbon Dioxide 16 mmol/L (21-32); Chloride 123 mmol/L (98-107); GFR African American 155 mL/min; GFR Non-African American 128 mL/min; Glucose 102 mg/dL (74-106); Sodium 149 mmol/L (136-145)
[2020-08-04 22:00] VITALS: BP 129/74
[2020-08-04] MEDS: CEFEPIME 1 GM in SODIUM CHL 0.9% 50 ML IV SCH (22:09)
[2020-08-05] MEDS: VANCOMYCIN 1GM/250ML 250 ML IV SCH ×2 (01:00→11:37)
--- NOTE | 2020-08-05 01:49 | NUR ---
WOUND CARE Dressings removed from left buttock and sacrum. Sanguinous drainage noted from wound on sacrum. Brown drainage noted from left buttock wound. Both wounds cleansed with wound cleanser, and patted dry with sterile gauze. Redressed according to orders. Patient tolerated well. repositioned onto left side. Bed returned to lowest locked position with HOB elevated.
[2020-08-05] MEDS: POTASSIUM CHLORIDE 20 MEQ in D5W 5% 1,000 ML IV SCH ×3 (03:10→19:20)
[2020-08-05 05:00] VITALS: BP 114/64
[2020-08-05] MEDS: CEFEPIME 1 GM in SODIUM CHL 0.9% 50 ML IV SCH ×3 (06:16→22:23)
[2020-08-05 09:00] VITALS: BP 137/69
[2020-08-05] MEDS ORDERED: GADOTERIDOL 279.3mg/mL 20ml Vial IV ONE (11:26)
[2020-08-05] MEDS: PANTOPRAZOLE 40 MG TAB PO SCH (11:38)
[2020-08-05] MEDS: PHENYTOIN SODIUM 100 MG CAP PO SCH ×2 (11:38→22:24)
[2020-08-05] MEDS: APIXABAN 5 MG TAB PO SCH (11:38)
[2020-08-05] MEDS: TOPIRAMATE 100 MG TAB PO SCH ×2 (11:38→22:24)
[2020-08-05] MEDS: PHENobarbital 20 MG/5 ML UD PO SCH ×2 (11:40→22:23)
[2020-08-05] MEDS: DexAMETHasone SOD PHOS 10MG/1ML VIAL INJ IV SCH (11:42)
[2020-08-05 13:00] VITALS: BP 111/51
[2020-08-05] MEDS ORDERED: IOHEXOL 300 MG/ML 100ML BOTTLE IJ ONE (16:11)
[2020-08-05 17:00] VITALS: BP 105/59
--- NOTE | 2020-08-05 17:30 | NUR ---
Spoke to Dr. Mackenzie. Results for the CT scan discussed, she would still like to go ahead with the NUC med scan, this RN called and left a message for NUC med. Dr. Mackenzie informed me that the surgeon Dr. Juana Portillo will do bedside debridement tomorrow.
--- NOTE | 2020-08-05 17:35 | NUR ---
Paged Dr. Venegas regarding potassium level and IV fluid with potassium. Concerning that patient potassium level will be too high, stopped fluids until phone call received.
--- NOTE | 2020-08-05 17:50 | NUR ---
Spoke to Dr. Venegas regarding IV fluids and labs Okay to stop the IV fluids until lab redraw.
--- NOTE | 2020-08-05 18:00 | NUR ---
Spoke to Laboratory. They are unable to draw labs, patient is a hard stick, they will send another school treasurer.
--- NOTE | 2020-08-05 19:20 | NUR ---
MEDICATION HELD IVF held due to Potassium level of 5.0. Dr. Venegas is aware.
--- NOTE | 2020-08-05 19:30 | NUR ---
OPENING SHIFT NOTE Assumed care of patient who is A&O x3. Slow to answer questions. Currently on 2L NC with no s/s of distress. Denies pain at this time. Midline in left upper arm is intact and patent. Flushed with 10ml NS. Roche catheter is in place and patent. Tubing is free from kinks and collection bag is hung below the level of the bladder. Draining clear yellow urine to gravity. POC discussed and white board updated to reflect POC. Bed is in low locked position with side rails up x2. Call light is within reach and patient encouraged to call for assistance when needed. Will continue to monitor for changes PRN.
--- NOTE | 2020-08-05 20:12 | NUR ---
LAB Placed call to lab to inquire about pending Vancomycin trough, CBC, and CMP. Per Ami, patient was a hard stick and previous net c developer was unable to obtain blood sample. New Infrastructure Manager now on shift and will attempt to draw ordered labs. 1700 dose of Vancomycin not given on previous shift due to Vancomycin trough not yet drawn.
--- NOTE | 2020-08-05 20:40 | NUR ---
FAMILY CONTACT Spoke with Patient's Brother, Celestino. Obtained telephone consent for debridement procedure planned for 08/06/20. Verified with second RN and placed in chart.
[2020-08-05 21:15] LABS: Basophils # (auto) 0 10 ^3/uL (0-0.2); Basophils % (auto) 0.2 % (0.0-2.0); Eosinophils # (auto) 0.1 10 ^3/uL (0-0.8); Hemoglobin 12.8 g/dL (13.5-17.5); Monocytes # (auto) 0.3 10 ^3/uL (0-1.3); Nucleated Red Blood Cells % 0.3 %
[2020-08-05 21:18] LABS: Eosinophils % (auto) 0.9 % (0.0-7.0); Hematocrit 38.6 % (41.0-53.0); Lymphocytes # (auto) 0.5 10 ^3/uL (0.4-5.4); Lymphocytes % (auto) 8.7 % (10.0-50.0); Mean Corpuscular Hemoglobin 35.9 pg (28.0-32.0); Mean Corpuscular Hgb Conc. 33.2 g/dL (32.0-36.0); Monocytes % (auto) 5.4 % (0.0-12.0); Neutrophils # (auto) 4.8 10 ^3/uL (1.6-8.6); Neutrophils % (auto) 84.8 % (37.0-80.0); Platelet Count (auto) 198 10^3/uL (140-450); Red Blood Cells 3.57 10^6/uL (4.5-5.90); White Blood Cell 5.7 10^3/uL (4.4-10.8)
[2020-08-05 21:30] VITALS: BP 107/57
[2020-08-05 21:45] LABS: BUN/Creatinine Ratio 17.7; Calcium 8.1 mg/dL (8.5-10.1); Potassium 3.9 mmol/L (3.5-5.1)
--- NOTE | 2020-08-05 22:30 | NUR ---
NUTRITION Patient has not eaten any of his dinner. Inquired if patient was hungry, to which he sated, "yeah". Food reheated at this time and patient fed. Ate 100% of meal. Tolerated well.
[2020-08-06] MEDS: VANCOMYCIN 1GM/250ML 250 ML IV SCH ×3 (00:55→18:45)
[2020-08-06] MEDS: POTASSIUM CHLORIDE 20 MEQ in D5W 5% 1,000 ML IV SCH ×3 (03:25→18:45)
[2020-08-06 05:00] VITALS: BP 132/66
[2020-08-06] MEDS: CEFEPIME 1 GM in SODIUM CHL 0.9% 50 ML IV SCH ×3 (06:23→22:13)
--- NOTE | 2020-08-06 07:00 | NUR ---
OPENING SHIFT NOTE RECEIVED REPORT ON THE PATIENT. AWAKE LYING IN BED. PATIENT SHOWS NO SIGNS OF DISTRESS AT THIS TIME. BED IN LOWEST POSITION, SIDE RAILS UP X2, AND CALL LIGHT IS WITHIN REACH.
[2020-08-06 07:24] LABS: Basophils # (auto) 0 10 ^3/uL (0-0.2); Basophils % (auto) 0.2 % (0.0-2.0); Eosinophils # (auto) 0.1 10 ^3/uL (0-0.8); Hemoglobin 12.6 g/dL (13.5-17.5); Lymphocytes # (auto) 0.3 10 ^3/uL (0.4-5.4); Monocytes # (auto) 0.3 10 ^3/uL (0-1.3); Monocytes % (auto) 5.4 % (0.0-12.0); Nucleated Red Blood Cells % 0.1 %
[2020-08-06 07:26] LABS: Eosinophils % (auto) 1.1 % (0.0-7.0); Hematocrit 36.7 % (41.0-53.0); Lymphocytes % (auto) 6.3 % (10.0-50.0); Mean Corpuscular Hemoglobin 35.7 pg (28.0-32.0); Mean Corpuscular Hgb Conc. 34.4 g/dL (32.0-36.0); Mean Corpuscular Volume 103.9 fL (80.0-100.0); Neutrophils # (auto) 4.8 10 ^3/uL (1.6-8.6); Platelet Count (auto) 219 10^3/uL (140-450); Red Blood Cells 3.54 10^6/uL (4.5-5.90); Red Cell Distribution Width 15.8 % (11.8-14.3); White Blood Cell 5.5 10^3/uL (4.4-10.8)
[2020-08-06 07:47] LABS: INR 1.21 (0.9-1.15); Partial Thromboplastin Time 45.5 sec (23.0-31.2)
[2020-08-06 09:00] VITALS: BP 130/76
[2020-08-06] MEDS ORDERED: LIDOCAINE W/ EPINEPHRINE 1% 20ML VIAL ID ONE (09:00)
[2020-08-06] MEDS ORDERED: SILVER NITRATE-POTAS NITRA STICK TOP ONE (09:00)
[2020-08-06] MEDS ORDERED: HEPARIN 1,000 UNITS/ml 1ML VIAL IV ONE (09:15)
--- NOTE | 2020-08-06 10:01 | NUR ---
NM LIMITED INFLAM WBC INDIUM GISELLA UP 2,000 UNITS OF HEPARIN AND COULD ONLY GET 20CC OF BLOOD FROM THE MIDLINE. GAVE TO NUC MED.
[2020-08-06] MEDS: DexAMETHasone SOD PHOS 10MG/1ML VIAL INJ IV SCH (10:43)
[2020-08-06] MEDS: PANTOPRAZOLE 40 MG TAB PO SCH (10:44)
[2020-08-06] MEDS: TOPIRAMATE 100 MG TAB PO SCH ×2 (10:44→22:14)
[2020-08-06] MEDS: PHENYTOIN SODIUM 100 MG CAP PO SCH ×2 (10:44→22:14)
[2020-08-06] MEDS: PHENobarbital 20 MG/5 ML UD PO SCH ×2 (10:44→22:24)
[2020-08-06] MEDS ORDERED: LIDOCAINE W/ EPINEPHRINE 1 % INJ 30ML ID ONE (12:45)
[2020-08-06 13:00] VITALS: BP 136/73
--- NOTE | 2020-08-06 16:29 | NUR ---
DR GRANT AT BEDSIDE FOR SACRAL DEBRIDEMENT. PATIENT TOLERATED PROCEDURE WELL. WOUND CULTURE SENT TO LAB. NO BIOPSY DONE.
[2020-08-06 17:00] VITALS: BP 125/72
--- NOTE | 2020-08-06 19:01 | NUR ---
PICC line placement Patient/Patient significant other educated on need for PICC line placement. All risks and benefits explained and all questions and concerns addressed prior to procedure. Noted past medical history and allergies with no contraindications. INR and Plt counts within acceptable range. 4 fr PICC line inserted via right brachial vein using [employer] US and Tip Location System. Sterile technique with maximum barrier precautions utilized. Blood return obtained from the single lumen and each flushed easily with NS using proper technique. PICC secured with Stat-lock; biodisc and occlusive dressing applied. Stat portable chest x-ray obtained for PICC tip placement. Primary RN *Baseline Arm Circumference 36 cm Internal Length 39 cm External Length 0 cm PICC lot # [id number]
--- NOTE | 2020-08-06 19:19 | NUR ---
OK to use PICC line Xray completed. OK to use PICC line. PRIMARY RN NOTIFIED.
--- NOTE | 2020-08-06 19:25 | NUR ---
OPENING SHIFT NOTE Assumed care of patient who is A&O x3. Patient is alert but slow to answer any questions. Currently on 2L NC with no s/s of distress. Denies pain at this time. Midline in left upper arm is intact and patent. Roche catheter is in place and patent. Bed is locked in lowest position with side rails up x2. Call light is within reach and patient encouraged to call for assistance when needed. Will continue to monitor for changes PRN.
[2020-08-06 22:00] VITALS: BP 118/84
--- NOTE | 2020-08-07 00:55 | NUR ---
VANCOMYCIN HELD The patient's vancomycin trough level is 23.7. Per pharmacy, medication is to be held if vancomycin trough is above 20.
[2020-08-07] MEDS: VANCOMYCIN 1GM/250ML 250 ML IV SCH (01:00)
[2020-08-07] MEDS: POTASSIUM CHLORIDE 20 MEQ in D5W 5% 1,000 ML IV SCH ×2 (04:00→12:15)
[2020-08-07 05:00] VITALS: BP 126/75
[2020-08-07] MEDS: CEFEPIME 1 GM in SODIUM CHL 0.9% 50 ML IV SCH ×2 (06:05→14:19)
[2020-08-07 08:00] VITALS: BP 147/80
[2020-08-07 09:00] VITALS: BP 129/75
[2020-08-07 09:31] LABS: BUN/Creatinine Ratio 11.7; Calcium 8.2 mg/dL (8.5-10.1); Potassium 3.2 mmol/L (3.5-5.1)
--- NOTE | 2020-08-07 09:39 | NUR ---
I called [facility] Relay Operator Ijeoma regarding the plan of care for this patient-she will have Relay Operator Cristino call me back ([phone] ext [phone]) after 10am-after their phone conference call with their MD's. I called to speak with nurse Flaco regarding needing the home IV ATB order clarified, he will give me a call back.
[2020-08-07] MEDS ORDERED: VANCOMYCIN 1GM/250ML 250 ML IV SCH ×2 (10:15→21:00)
[2020-08-07] MEDS ORDERED: VANCOMYCIN 1GM/250ML 250 ML IV ONE (10:15)
[2020-08-07] MEDS: PHENobarbital 20 MG/5 ML UD PO SCH (10:43)
[2020-08-07] MEDS: PHENYTOIN SODIUM 100 MG CAP PO SCH (10:43)
[2020-08-07] MEDS: TOPIRAMATE 100 MG TAB PO SCH (10:43)
[2020-08-07] MEDS: DexAMETHasone SOD PHOS 10MG/1ML VIAL INJ IV SCH (10:44)
[2020-08-07] MEDS: PANTOPRAZOLE 40 MG TAB PO SCH (10:44)
[2020-08-07] MEDS ORDERED: POTASSIUM CHLORIDE 40 MEQ, LIDOCAINE 1% (LOCAL ANESTH.) 4 ML in SODIUM CHL 0.9% 250 ML IV ONE (10:45)
[2020-08-07] MEDS ORDERED: POTASSIUM EFFERVESENT TAB 25 MEQ PO ONE (11:30)
--- NOTE | 2020-08-07 11:51 | NUR ---
I spoke with nurse Sam and let him know that home IV ATB order needs to be clarified before we can continue working on it. I called [facility] and spoke with Babita [phone] and let her know that most likely home IV ATB order will be changed-I will call her back when I get clarification.
[2020-08-07] MEDS ORDERED: ERTAPENEM SOD 1 GM INJ VIAL IM ONE (12:00)
--- NOTE | 2020-08-07 12:30 | NUR ---
Dr. Faye Venegas phoned and gave new orders. stated that he will discharge patient home after k rider.
--- NOTE | 2020-08-07 12:41 | NUR ---
I faxed updated home IV ATB order to [facility] and [facility].
[2020-08-07 13:00] VITALS: BP 147/80
[2020-08-07] MEDS ORDERED: ERTAPENEM SOD INJ 1 GM in SODIUM CHL 0.9% 50 ML IV ONE (13:00)
--- NOTE | 2020-08-07 13:24 | NUR ---
I spoke with Dr. Nishi Venegas-he verified that patient will discharge home today. I called Infusion and spoke with Babita-she verified that they did receive the updated IV order for Vancomycin and Ertapenem-she will contact patient's family and arrange delivery between 8-10pm [facility].
--- NOTE | 2020-08-07 15:12 | NUR ---
Phoned dr. Faye Venegas as patient still has no order for discharge and SS has been arranging Home Health and transportaion. gave phone order for patient's discharge
--- NOTE | 2020-08-07 15:15 | NUR ---
Nutrition Followup Note Pt wt is 119.3 kg Pt was sleeping when rounded this morning. Pt is with a Cardiac 2gNa diet, appetite is improved, fair aeb ave 60% PO intake per RN doc. Est energy needs ABW 99 [id number] kcal (23-25 kcal/kg ABW), Est protein needs: 99-119 g (1.0-1.2g/kg ABW r/t wounds) Will reassess prn. LABS: CA 8.2 L, K 3.2 L, ALB 2.7 L, Gluc 129 H GI: Pt with no reported BM today per RN doc. BS: 11 high risk. Refer to Wound Assessment report for further details. PES: 1) Altered nutrition related lab values r.t current chronic medical condition aeb elev BUN hyperglycemia hypocalcemia, mod hypoalb 2) Decreased nutrient needs r/t adiposity aeb t`s high BMI of 33.3 kgm2 Comments Will continue to monitor PO status, skin status, pertinent labs and weight trends. Will f/u in 3-5 days. 1) Advance diet as medically feasible 2) Consider MVI/C bid 3) Refer to OPD dietitian on DC 4) Continue current plan of care
--- NOTE | 2020-08-07 16:17 | NUR ---
Phoned dr. Faye Venegas to verify Vancomycin order as Pharmacy will not fill up order if there is no duration as per SS. MD gave new orders and SS notified of same.
--- NOTE | 2020-08-07 16:23 | NUR ---
I faxed updated home IV Vancomycin order to [facility].
--- NOTE | 2020-08-07 16:31 | NUR ---
D/C Planning Faxed updated order to [facility] and follow up with patient brother Celestino advising him patient will be going home with two IV abx. Celestino verbalize understanding d/c plan. Placed call to [email or web address] transportation spoke to Joy. Per Joy with [email or web address] transportation has been arranged at 6:30pm via [employer] confirmation # is [id number]. Informed JOLENE Sam.
--- NOTE | 2020-08-07 16:45 | NUR ---
Took photos of patient's wound and cleansed area and changed patient's dressings. required 3 staff to hold patient and change patient's dressings. Patient tolerated it well.
[2020-08-07 17:00] VITALS: BP 121/81
[2020-08-07 17:39] VITALS: BP 135/90
--- NOTE | 2020-08-07 18:20 | NUR ---
talked to patient's caregiver/ brother and gave him the discharge instructions and he verbalized understanding.
--- NOTE | 2020-08-07 19:00 | NUR ---
Report given to Maxim FERNÁNDEZ as patient still waiting for transportation home. No changes noted in patient's condition.
--- NOTE | 2020-08-07 19:05 | NUR ---
PATIENT TRANSPORT ARRIVED. PATIENT GIVEN WOUND CARE SUPPLY AND DISCHARGED HOME.
== END 2020-08-07 19:10 | disposition home health service (06) | DRG 871 ==
LOC: ER 10:18 → EDBD 10:18 → OVERFLOW 10:19 → WEST WING 20:19
PROVIDERS: ADMIT Internal Medicine; ATTEND Internal Medicine
PROC: 02HV33Z Insertion of Infusion Device into Superior Vena Cava, Percutaneous Approach (ICD-10-PCS; principal; 2020-08-06)
DX: A41.9 Sepsis, unspecified organism (principal); J18.9 Pneumonia, unspecified organism; G93.41 Metabolic encephalopathy; N39.0 Urinary tract infection, site not specified; E44.0 Moderate protein-calorie malnutrition; E87.0 Hyperosmolality and hypernatremia; I82.403 Acute embolism and thrombosis of unspecified deep veins of lower extremity, bilateral; N17.9 Acute kidney failure, unspecified; G40.509 Epileptic seizures related to external causes, not intractable, without status epilepticus; R06.03 Acute respiratory distress; E87.6 Hypokalemia; E86.0 Dehydration; E66.01 Morbid (severe) obesity due to excess calories; L89.320 Pressure ulcer of left buttock, unstageable; L89.159 Pressure ulcer of sacral region, unspecified stage; F03.90 Unspecified dementia, unspecified severity, without behavioral disturbance, psychotic disturbance, mood disturbance, and anxiety; R65.20 Severe sepsis without septic shock; Z20.828 Contact with and (suspected) exposure to other viral communicable diseases; Z68.34 Body mass index [BMI] 34.0-34.9, adult; Z74.01 Bed confinement status; Z79.01 Long term (current) use of anticoagulants; Z82.49 Family history of ischemic heart disease and other diseases of the circulatory system; Z86.73 Personal history of transient ischemic attack (TIA), and cerebral infarction without residual deficits; Z87.01 Personal history of pneumonia (recurrent); L89.151 Pressure ulcer of sacral region, stage 1
CPT/HCPCS: 36415; 36569; 51702; 71045; 71275; 72193; 80048; 80053; 80184; 80185; 80202; 81001; 82565; 82570; 82728; 83615; 83735; 83880; 84132; 84156; 84300; 84484; 85025; 85610; 85730; 86141; 86850; 86900; 86901; 87040; 87077; 87086; 87186; 87205; 87426; 92610; 93970; 96365; 96366; 96367; 96368; 99291; G0378; J0696; J1100; J1335; J1956; J2001; J3480; J3490

== ENCOUNTER 2021-01-15 17:45 | Inpatient (IN) | payer OTHER ==
[~2021-01-15] VITALS: Ht 172.7 cm; Wt 108.6 kg
[~2021-01-15 17:45] MED LIST changes: +PHEN100C PO; -TOPI100T29 PO; +TOPI100T68 PO
[2021-01-15] MEDS ORDERED: ACETAMINOPHEN 325 MG TAB PO ONE (18:15)
[2021-01-15] MEDS ORDERED: SODIUM CHLORIDE 0.9% 1,000 ML IVB ONE (18:15)
[2021-01-15 19:05] LABS: Basophils # (auto) 0.1 10 ^3/uL (0-0.2); Basophils % (auto) 0.6 % (0.0-2.0); Eosinophils # (auto) 0 10 ^3/uL (0-0.8); Eosinophils % (auto) 0.6 % (0.0-7.0); Hematocrit 36.9 % (41.0-53.0); Hemoglobin 12.5 g/dL (13.5-17.5); Lymphocytes # (auto) 0.4 10 ^3/uL (0.4-5.4); Lymphocytes % (auto) 4.3 % (10.0-50.0); Mean Corpuscular Hemoglobin 31.9 pg (28.0-32.0); Mean Corpuscular Hgb Conc. 33.9 g/dL (32.0-36.0); Mean Corpuscular Volume 93.9 fL (80.0-100.0); Monocytes # (auto) 0.6 10 ^3/uL (0-1.3); Monocytes % (auto) 7.3 % (0.0-12.0); Neutrophils # (auto) 7.7 10 ^3/uL (1.6-8.6); Neutrophils % (auto) 87.2 % (37.0-80.0); Nucleated Red Blood Cells % 0.2 %; Red Blood Cells 3.93 10^6/uL (4.5-5.90); Red Cell Distribution Width 14.4 % (11.8-14.3); White Blood Cell 8.8 10^3/uL (4.4-10.8)
[2021-01-15] MEDS ORDERED: cefTRIAXone 1GM/50ML D5W 50 ML IV ONE (19:15)
[2021-01-15 19:32] LABS: Albumin 2.3 g/dL (3.4-5.0); Anion Gap 11 (5-15); Blood Urea Nitrogen 9 mg/dL (7-18); Calcium 8.6 mg/dL (8.5-10.1); Carbon Dioxide 18 mmol/L (21-32); Chloride 106 mmol/L (98-107); Glucose 120 mg/dL (74-106); Magnesium 2.2 mg/dL (1.6-2.6); Potassium 3.8 mmol/L (3.5-5.1); Sodium 135 mmol/L (136-145)
[2021-01-15 19:36] LABS: Alanine Aminotransferase 81 U/L (16-61); Alkaline Phosphatase 112 U/L (45-117); Aspartate Aminotransferase 77 U/L (15-37); Bilirubin, Total 0.3 mg/dL (0.2-1.0); GFR African American 217 mL/min; GFR Non-African American 180 mL/min; Total Protein 7.9 g/dL (6.4-8.2)
[2021-01-15 19:56] LABS: INR 1.21 (0.9-1.15); Partial Thromboplastin Time 45.9 sec (23.0-31.2)
[2021-01-16] VITALS (7 sets, daily range): BP systolic 106–148; BP diastolic 61–84
[2021-01-16] MEDS ORDERED: HYDROcodone-ACET 5/325MG TAB PO PRN
[2021-01-16] MEDS ORDERED: MORPHINE SULFATE 4 MG/ML SYR/VIAL IV PRN
[2021-01-16] MEDS ORDERED: DOCUSATE SOD 100 MG CAP PO PRN
[2021-01-16] MEDS ORDERED: NITROGLYCERIN 0.4 MG SL TAB SL PRN
[2021-01-16] MEDS ORDERED: ONDANSETRON HCL 4 MG/2 ML VIAL IV PRN
[2021-01-16] MEDS ORDERED: MORPHINE SULFATE INJECTION 2 MG/ML SYRG IV PRN
[2021-01-16] MEDS ORDERED: ALBUMIN 5% 50 ML IV ONE (00:15)
[2021-01-16] MEDS: SODIUM CHLORIDE 0.9% 1,000 ML IV SCH ×2 (01:45→17:40)
[2021-01-16] MEDS: ACETAMINOPHEN 325 MG TAB PO PRN ×2 (02:55→22:59)
[2021-01-16 04:50] LABS: Urine Bacteria MANY /hpf (None Seen); Urine Blood 3+ /uL (Negative); Urine Mucus FEW (None Seen); Urine Specific Gravity 1.022 (1.001-1.035); Urine WBC 696 /hpf (0 - 3); Urine WBC Clumps PRESENT /hpf (None Seen)
[2021-01-16 05:56] LABS: Basophils # (auto) 0 10 ^3/uL (0-0.2); Basophils % (auto) 0.2 % (0.0-2.0); Eosinophils # (auto) 0.1 10 ^3/uL (0-0.8); Eosinophils % (auto) 0.7 % (0.0-7.0); Hematocrit 32.9 % (41.0-53.0); Hemoglobin 11.3 g/dL (13.5-17.5); Lymphocytes # (auto) 0.3 10 ^3/uL (0.4-5.4); Lymphocytes % (auto) 3.2 % (10.0-50.0); Mean Corpuscular Hemoglobin 32.4 pg (28.0-32.0); Mean Corpuscular Hgb Conc. 34.5 g/dL (32.0-36.0); Mean Corpuscular Volume 93.8 fL (80.0-100.0); Monocytes # (auto) 0.6 10 ^3/uL (0-1.3); Monocytes % (auto) 7.7 % (0.0-12.0); Neutrophils # (auto) 7.2 10 ^3/uL (1.6-8.6); Neutrophils % (auto) 88.2 % (37.0-80.0); Nucleated Red Blood Cells % 0.1 %; Red Cell Distribution Width 14.2 % (11.8-14.3); White Blood Cell 8.2 10^3/uL (4.4-10.8)
[2021-01-16 06:12] LABS: Albumin 1.9 g/dL (3.4-5.0); Calcium 8.1 mg/dL (8.5-10.1); Potassium 3.9 mmol/L (3.5-5.1)
[2021-01-16 06:17] LABS: BUN/Creatinine Ratio 22.2; Bilirubin, Total 0.3 mg/dL (0.2-1.0); Total Protein 6.4 g/dL (6.4-8.2)
[2021-01-16] MEDS: cefTRIAXone 1GM/50ML D5W 50 ML IV SCH (09:07)
[2021-01-16] MEDS: FAMOTIDINE (10MG/ML) 2ML VL IV SCH ×2 (09:07→21:46)
[2021-01-16] MEDS: PHENobarbital 20 MG/5 ML UD PO SCH ×2 (09:09→21:46)
[2021-01-16] MEDS: ZINC SULFATE 220mg CAP or TAB PO SCH (09:10)
[2021-01-16] MEDS: PHENYTOIN SODIUM 100 MG CAP PO SCH ×2 (09:11→21:46)
[2021-01-16] MEDS: MULTIPLE VITAMIN TAB PO SCH (09:11)
[2021-01-16] MEDS: TOPIRAMATE 100 MG TAB PO SCH ×2 (09:11→21:46)
[2021-01-16] MEDS: ASCORBIC ACID 500 MG TAB PO SCH ×2 (09:12→21:47)
[2021-01-16] MEDS: ENOXAPARIN SOD 40 MG/0.4 ML SYRINGE SC SCH (09:12)
[2021-01-17 05:00] VITALS: BP 119/86
[2021-01-17 08:00] VITALS: BP 117/67
[2021-01-17 08:32] LABS: Basophils # (auto) 0 10 ^3/uL (0-0.2); Basophils % (auto) 0.3 % (0.0-2.0); Eosinophils # (auto) 0.1 10 ^3/uL (0-0.8); Eosinophils % (auto) 1.6 % (0.0-7.0); Hematocrit 32.7 % (41.0-53.0); Hemoglobin 11.2 g/dL (13.5-17.5); Lymphocytes # (auto) 0.3 10 ^3/uL (0.4-5.4); Lymphocytes % (auto) 3.6 % (10.0-50.0); Mean Corpuscular Hemoglobin 31.4 pg (28.0-32.0); Mean Corpuscular Hgb Conc. 34.2 g/dL (32.0-36.0); Monocytes # (auto) 0.4 10 ^3/uL (0-1.3); Monocytes % (auto) 5.2 % (0.0-12.0); Neutrophils # (auto) 6.4 10 ^3/uL (1.6-8.6); Neutrophils % (auto) 89.3 % (37.0-80.0); Red Blood Cells 3.56 10^6/uL (4.5-5.90); Red Cell Distribution Width 14.3 % (11.8-14.3); White Blood Cell 7.2 10^3/uL (4.4-10.8)
[2021-01-17 08:49] LABS: Calcium 8.4 mg/dL (8.5-10.1); Magnesium 2.3 mg/dL (1.6-2.6); Potassium 3.1 mmol/L (3.5-5.1)
[2021-01-17] MEDS: cefTRIAXone 1GM/50ML D5W 50 ML IV SCH (09:01)
[2021-01-17] MEDS: TOPIRAMATE 100 MG TAB PO SCH ×2 (09:02→22:04)
[2021-01-17] MEDS: ENOXAPARIN SOD 40 MG/0.4 ML SYRINGE SC SCH (09:02)
[2021-01-17] MEDS: ASCORBIC ACID 500 MG TAB PO SCH ×2 (09:03→22:04)
[2021-01-17] MEDS: MULTIPLE VITAMIN TAB PO SCH (09:03)
[2021-01-17] MEDS: ZINC SULFATE 220mg CAP or TAB PO SCH (09:03)
[2021-01-17] MEDS: PHENYTOIN SODIUM 100 MG CAP PO SCH ×2 (09:03→22:04)
[2021-01-17] MEDS: FAMOTIDINE (10MG/ML) 2ML VL IV SCH ×2 (09:04→22:03)
[2021-01-17] MEDS: SODIUM CHLORIDE 0.9% 1,000 ML IV SCH (09:20)
[2021-01-17] MEDS: PHENobarbital 20 MG/5 ML UD PO SCH ×2 (10:39→22:04)
[2021-01-17 13:00] VITALS: BP 134/80
[2021-01-17] MEDS ORDERED: POTASSIUM CHL 20MEQ/100ML 100 ML IV SCH ×2 (13:00)
[2021-01-17 17:00] VITALS: BP 113/89
[2021-01-17 22:00] VITALS: BP 114/71
[2021-01-18] MEDS: SODIUM CHLORIDE 0.9% 1,000 ML IV SCH ×2 (04:24→18:40)
[2021-01-18 05:00] VITALS: BP 116/73
[2021-01-18 05:49] LABS: Basophils # (auto) 0 10 ^3/uL (0-0.2); Eosinophils # (auto) 0.2 10 ^3/uL (0-0.8); Eosinophils % (auto) 2.2 % (0.0-7.0); Hematocrit 31.2 % (41.0-53.0); Hemoglobin 10.8 g/dL (13.5-17.5); Lymphocytes # (auto) 0.3 10 ^3/uL (0.4-5.4); Lymphocytes % (auto) 4.7 % (10.0-50.0); Mean Corpuscular Hemoglobin 31.6 pg (28.0-32.0); Mean Corpuscular Hgb Conc. 34.7 g/dL (32.0-36.0); Mean Corpuscular Volume 91.2 fL (80.0-100.0); Monocytes # (auto) 0.4 10 ^3/uL (0-1.3); Monocytes % (auto) 5.5 % (0.0-12.0); Neutrophils # (auto) 6.3 10 ^3/uL (1.6-8.6); Neutrophils % (auto) 87.6 % (37.0-80.0); Red Blood Cells 3.42 10^6/uL (4.5-5.90); White Blood Cell 7.2 10^3/uL (4.4-10.8)
[2021-01-18 06:12] LABS: Calcium 8.1 mg/dL (8.5-10.1); Magnesium 2.1 mg/dL (1.6-2.6); Potassium 3.2 mmol/L (3.5-5.1)
[2021-01-18 06:14] LABS: BUN/Creatinine Ratio 18.9
[2021-01-18 09:00] VITALS: BP 103/65
[2021-01-18] MEDS: cefTRIAXone 1GM/50ML D5W 50 ML IV SCH (09:46)
[2021-01-18] MEDS: ENOXAPARIN SOD 40 MG/0.4 ML SYRINGE SC SCH (09:46)
[2021-01-18] MEDS: FAMOTIDINE (10MG/ML) 2ML VL IV SCH (09:46)
[2021-01-18] MEDS: ZINC SULFATE 220mg CAP or TAB PO SCH (09:47)
[2021-01-18] MEDS: TOPIRAMATE 100 MG TAB PO SCH (09:47)
[2021-01-18] MEDS: ASCORBIC ACID 500 MG TAB PO SCH (09:47)
[2021-01-18] MEDS: PHENYTOIN SODIUM 100 MG CAP PO SCH (09:47)
[2021-01-18] MEDS: MULTIPLE VITAMIN TAB PO SCH (09:47)
[2021-01-18] MEDS: PHENobarbital 20 MG/5 ML UD PO SCH (11:51)
[2021-01-18 13:00] VITALS: BP 106/72
[2021-01-18] MEDS ORDERED: levoFLOXacin 500MG 100 ML IV SCH (13:15)
[2021-01-18] MEDS ORDERED: POTASSIUM CHL 20 Meq TABLET PO ONE (14:15)
[2021-01-18 16:45] VITALS: BP 95/54
[2021-01-18 16:52] VITALS: BP 95/54
[2021-05-28] MEDS ORDERED: TOPI100T29 PO (13:32)
[2021-05-28] MEDS ORDERED: PHEN32.44 PO (13:32)
[2021-05-28] MEDS ORDERED: PHE100C PO (13:32)
[2021-05-29] MEDS ORDERED: TOPI25CA5 PO (08:49)
[2021-05-30] MEDS ORDERED: CEPH-322 PO (12:10)
== END 2021-01-18 20:10 | disposition home health service (06) | DRG 698 ==
LOC: EDBD 17:45 → ER 17:45 → TELE-CENTR 23:57
PROVIDERS: ADMIT Nurse Practitioner Family; ATTEND Internal Medicine
DX: T83.511A Infection and inflammatory reaction due to indwelling urethral catheter, initial encounter (principal); G82.50 Quadriplegia, unspecified; L89.154 Pressure ulcer of sacral region, stage 4; L89.224 Pressure ulcer of left hip, stage 4; Z20.822 Contact with and (suspected) exposure to COVID-19; E88.09 Other disorders of plasma-protein metabolism, not elsewhere classified; E87.6 Hypokalemia; N39.0 Urinary tract infection, site not specified; B96.20 Unspecified Escherichia coli [E. coli] as the cause of diseases classified elsewhere; B95.2 Enterococcus as the cause of diseases classified elsewhere; E78.5 Hyperlipidemia, unspecified; G40.909 Epilepsy, unspecified, not intractable, without status epilepticus; Z82.49 Family history of ischemic heart disease and other diseases of the circulatory system; Z74.01 Bed confinement status; Z90.49 Acquired absence of other specified parts of digestive tract; Z87.820 Personal history of traumatic brain injury
CPT/HCPCS: 36415; 71045; 80048; 80053; 80185; 81001; 83036; 83605; 83735; 84484; 85025; 85610; 85730; 87040; 87077; 87086; 87088; 87186; 87205; 87426; 93005; 96361; 96365; G0378; J0696; J1956; J3490

== ENCOUNTER 2021-01-25 11:47 | Inpatient (IN) | payer OTHER ==
[~2021-01-25] VITALS: Ht 182.9 cm; Wt 102.1 kg
[~2021-01-25 11:47] MED LIST changes: -LEVO-28 PO
[2021-01-25] MEDS ORDERED: SODIUM CHLORIDE 0.9% 500 ML IV ONE (12:00)
[2021-01-25 13:30] LABS: Basophils # (auto) 0 10 ^3/uL (0-0.2); Basophils % (auto) 0.2 % (0.0-2.0); Eosinophils # (auto) 0.1 10 ^3/uL (0-0.8); Eosinophils % (auto) 0.8 % (0.0-7.0); Hematocrit 40.3 % (41.0-53.0); Hemoglobin 13.4 g/dL (13.5-17.5); Lymphocytes # (auto) 0.4 10 ^3/uL (0.4-5.4); Lymphocytes % (auto) 4.9 % (10.0-50.0); Mean Corpuscular Hemoglobin 30.9 pg (28.0-32.0); Mean Corpuscular Hgb Conc. 33.2 g/dL (32.0-36.0); Mean Corpuscular Volume 93.2 fL (80.0-100.0); Monocytes # (auto) 0.5 10 ^3/uL (0-1.3); Monocytes % (auto) 6.2 % (0.0-12.0); Neutrophils # (auto) 7.3 10 ^3/uL (1.6-8.6); Neutrophils % (auto) 87.9 % (37.0-80.0); Nucleated Red Blood Cells % 0.8 %; Platelet Count (auto) 333 10^3/uL (140-450); Red Blood Cells 4.33 10^6/uL (4.5-5.90); Red Cell Distribution Width 14.9 % (11.8-14.3); White Blood Cell 8.3 10^3/uL (4.4-10.8)
[2021-01-25 13:49] LABS: Albumin 2.4 g/dL (3.4-5.0); Anion Gap 9 (5-15); Blood Urea Nitrogen 7 mg/dL (7-18); Calcium 8.7 mg/dL (8.5-10.1); Carbon Dioxide 22 mmol/L (21-32); Chloride 110 mmol/L (98-107); Glucose 93 mg/dL (74-106); Magnesium 2.5 mg/dL (1.6-2.6); Potassium 3.9 mmol/L (3.5-5.1); Sodium 141 mmol/L (136-145)
[2021-01-25 13:55] LABS: Alanine Aminotransferase 54 U/L (16-61); Alkaline Phosphatase 106 U/L (45-117); Aspartate Aminotransferase 34 U/L (15-37); BUN/Creatinine Ratio 17.1; Bilirubin, Total 0.2 mg/dL (0.2-1.0); GFR African American 273 mL/min; GFR Non-African American 226 mL/min; Total Protein 7.5 g/dL (6.4-8.2)
[2021-01-25 15:09] LABS: Urine Bacteria NONE SEEN /hpf (None Seen); Urine Blood 3+ /uL (Negative); Urine Mucus FEW (None Seen); Urine WBC 42 /hpf (0 - 3)
[2021-01-25] MEDS ORDERED: GENTAMICIN PER PHARMACY 0 ML IV SCH (17:00)
[2021-01-25] MEDS ORDERED: ONDANSETRON HCL 4 MG/2 ML VIAL IV PRN (17:00)
[2021-01-25] MEDS ORDERED: ACETAMINOPHEN 500 MG TAB PO PRN (17:00)
[2021-01-25] MEDS ORDERED: cefTRIAXone 1GM/50ML D5W 50 ML IV ONE (17:00)
[2021-01-25 20:00] VITALS: BP 127/85
[2021-01-25] MEDS: MEROPENEM 1GM IVPB 100 ML IV SCH (21:18)
[2021-01-25 22:00] VITALS: BP 127/85
[2021-01-26] VITALS (7 sets, daily range): BP systolic 123–160; BP diastolic 48–77
[2021-01-26] MEDS: MEROPENEM 1GM IVPB 100 ML IV SCH ×3 (05:23→22:28)
[2021-01-26] MEDS ORDERED: TOPI200T43 PO (08:04)
[2021-01-26] MEDS ORDERED: PHE100C PO (08:04)
[2021-01-26] MEDS ORDERED: cefTRIAXone 1GM/50ML D5W 50 ML IV SCH (10:00)
[2021-01-26 10:09] LABS: Calcium 8.4 mg/dL (8.5-10.1); Potassium 4.1 mmol/L (3.5-5.1)
[2021-01-26 10:11] LABS: BUN/Creatinine Ratio 21.1
[2021-01-26 11:24] LABS: Basophils # (auto) 0 10 ^3/uL (0-0.2); Basophils % (auto) 0.2 % (0.0-2.0); Eosinophils # (auto) 0.1 10 ^3/uL (0-0.8); Eosinophils % (auto) 1.1 % (0.0-7.0); Hematocrit 40.2 % (41.0-53.0); Hemoglobin 13.5 g/dL (13.5-17.5); Lymphocytes # (auto) 0.4 10 ^3/uL (0.4-5.4); Lymphocytes % (auto) 7.9 % (10.0-50.0); Mean Corpuscular Hemoglobin 31.2 pg (28.0-32.0); Mean Corpuscular Hgb Conc. 33.5 g/dL (32.0-36.0); Mean Corpuscular Volume 93.2 fL (80.0-100.0); Monocytes # (auto) 0.3 10 ^3/uL (0-1.3); Monocytes % (auto) 6.5 % (0.0-12.0); Neutrophils # (auto) 4.2 10 ^3/uL (1.6-8.6); Neutrophils % (auto) 84.3 % (37.0-80.0); Nucleated Red Blood Cells % 0.2 %; Platelet Count (auto) 315 10^3/uL (140-450); Red Blood Cells 4.32 10^6/uL (4.5-5.90); Red Cell Distribution Width 14.9 % (11.8-14.3)
[2021-01-26] MEDS: PHENobarbital 32.4 MG TAB PO SCH (22:28)
[2021-01-26] MEDS: TOPIRAMATE 100 MG TAB PO SCH (22:29)
[2021-01-26] MEDS: APIXABAN 5 MG TAB PO SCH (22:29)
[2021-01-26] MEDS: PHENYTOIN SODIUM 100 MG CAP PO SCH (22:29)
[2021-01-27 05:14] VITALS: BP 135/56
[2021-01-27] MEDS: MEROPENEM 1GM IVPB 100 ML IV SCH ×2 (05:55→14:00)
[2021-01-27 08:00] VITALS: BP 129/81
[2021-01-27] MEDS: PHENobarbital 32.4 MG TAB PO SCH (10:07)
[2021-01-27] MEDS: PHENYTOIN SODIUM 100 MG CAP PO SCH (10:09)
[2021-01-27] MEDS: TOPIRAMATE 100 MG TAB PO SCH (10:09)
[2021-01-27] MEDS: APIXABAN 5 MG TAB PO SCH (10:09)
[2021-01-27 12:00] VITALS: BP 137/87
[2021-01-27] MEDS ORDERED: AMOX500T86 PO (12:26)
[2021-01-27] MEDS ORDERED: CIPR-173 PO (12:26)
[2021-01-27 16:00] VITALS: BP 117/70
== END 2021-01-27 20:20 | disposition home or self-care (01) | DRG 698 ==
LOC: ER 11:47 → EDBD 11:47 → EDUNIT# 11:47 → OVERFLOW 16:50 → WEST WING 19:56
PROVIDERS: ADMIT Hospitalist; ATTEND Hospitalist
DX: T83.511A Infection and inflammatory reaction due to indwelling urethral catheter, initial encounter (principal); G93.41 Metabolic encephalopathy; L89.224 Pressure ulcer of left hip, stage 4; N30.01 Acute cystitis with hematuria; Z20.822 Contact with and (suspected) exposure to COVID-19; L89.95 Pressure ulcer of unspecified site, unstageable; G40.909 Epilepsy, unspecified, not intractable, without status epilepticus; E88.09 Other disorders of plasma-protein metabolism, not elsewhere classified; I10 Essential (primary) hypertension; Z74.01 Bed confinement status; Z82.49 Family history of ischemic heart disease and other diseases of the circulatory system
CPT/HCPCS: 36415; 71045; 80048; 80053; 80185; 81001; 83735; 84484; 85025; 87040; 87081; 87086; 87088; 87186; 87426; 93005; 96360; G0378; J0696; J2185

== ENCOUNTER 2021-03-03 19:06 | Emergency (ER) | payer OTHER ==
[~2021-03-03] VITALS: Ht 172.7 cm; Wt 90.7 kg
[~2021-03-03 19:06] MED LIST changes: +AMOX500T86 PO; +CIPR-173 PO; +PHE100C PO; +TOPI200T43 PO
[2021-03-03 20:49] LABS: Basophils # (auto) 0 10 ^3/uL (0-0.2); Basophils % (auto) 0.4 % (0.0-2.0); Eosinophils # (auto) 0.1 10 ^3/uL (0-0.8); Eosinophils % (auto) 1.6 % (0.0-7.0); Hematocrit 33.5 % (41.0-53.0); Hemoglobin 11.6 g/dL (13.5-17.5); Lymphocytes # (auto) 0.3 10 ^3/uL (0.4-5.4); Lymphocytes % (auto) 5.2 % (10.0-50.0); Mean Corpuscular Hemoglobin 31.9 pg (28.0-32.0); Mean Corpuscular Hgb Conc. 34.7 g/dL (32.0-36.0); Mean Corpuscular Volume 91.7 fL (80.0-100.0); Monocytes # (auto) 0.3 10 ^3/uL (0-1.3); Monocytes % (auto) 4.8 % (0.0-12.0); Neutrophils # (auto) 5.7 10 ^3/uL (1.6-8.6); Nucleated Red Blood Cells % 0.1 %; Platelet Count (auto) 291 10^3/uL (140-450); Red Blood Cells 3.65 10^6/uL (4.5-5.90); White Blood Cell 6.4 10^3/uL (4.4-10.8)
[2021-03-03 21:03] LABS: INR 1.08 (0.9-1.15)
[2021-03-03 21:17] LABS: Albumin 2.5 g/dL (3.4-5.0); BUN/Creatinine Ratio 15.1; Calcium 8.8 mg/dL (8.5-10.1); Potassium 3.9 mmol/L (3.5-5.1)
[2021-03-03 21:19] LABS: Bilirubin, Total 0.2 mg/dL (0.2-1.0); Total Protein 8.5 g/dL (6.4-8.2)
[2021-03-04 15:54] VITALS: BP 112/62
== END 2021-03-04 01:59 | disposition home or self-care (01) ==
LOC: EDBD 19:06 → ER 19:08
DX: L89.95 Pressure ulcer of unspecified site, unstageable (principal); I10 Essential (primary) hypertension; Z90.49 Acquired absence of other specified parts of digestive tract; Z79.2 Long term (current) use of antibiotics; Z79.899 Other long term (current) drug therapy; Z20.822 Contact with and (suspected) exposure to COVID-19
CPT/HCPCS: 36415; 71045; 80053; 83605; 85025; 85610; 85730; 87040; 87077; 87186; 87205; 87426; 93005

== ENCOUNTER 2021-04-14 16:01 | Inpatient (IN) | payer OTHER ==
[~2021-04-14] VITALS: Ht 185.4 cm; Wt 93.0 kg
[2021-04-14] MEDS ORDERED: CLINDAMYCIN 900MG IV 50 ML IV ONE (16:45)
[2021-04-14 17:21] LABS: Basophils # (auto) 0 10 ^3/uL (0-0.2); Basophils % (auto) 0.4 % (0.0-2.0); Eosinophils # (auto) 0.1 10 ^3/uL (0-0.8); Eosinophils % (auto) 1.3 % (0.0-7.0); Hemoglobin 10.1 g/dL (13.5-17.5); Lymphocytes # (auto) 0.3 10 ^3/uL (0.4-5.4); Lymphocytes % (auto) 5.2 % (10.0-50.0); Mean Corpuscular Volume 94.3 fL (80.0-100.0); Monocytes # (auto) 0.4 10 ^3/uL (0-1.3); Monocytes % (auto) 7.4 % (0.0-12.0); Neutrophils # (auto) 5.2 10 ^3/uL (1.6-8.6); Neutrophils % (auto) 85.7 % (37.0-80.0); Red Blood Cells 3.07 10^6/uL (4.5-5.90); Red Cell Distribution Width 17.2 % (11.8-14.3); White Blood Cell 6.1 10^3/uL (4.4-10.8)
[2021-04-14 17:49] LABS: Albumin 2.2 g/dL (3.4-5.0); BUN/Creatinine Ratio 20.5; Calcium 8.2 mg/dL (8.5-10.1); Potassium 3.8 mmol/L (3.5-5.1)
[2021-04-14 17:52] LABS: Bilirubin, Total 0.1 mg/dL (0.2-1.0); Total Protein 7.1 g/dL (6.4-8.2)
[2021-04-14] MEDS ORDERED: ONDANSETRON HCL 4 MG/2 ML VIAL IV PRN (21:00)
[2021-04-14] MEDS ORDERED: ACETAMINOPHEN 325 MG TAB PO PRN (21:00)
[2021-04-14] MEDS ORDERED: DOCUSATE SOD 100 MG CAP PO PRN (21:00)
[2021-04-14] MEDS ORDERED: HYDROcodone-ACET 5/325MG TAB PO PRN (21:00)
[2021-04-14] MEDS ORDERED: cefTRIAXone 1GM/50ML D5W 50 ML IV ONE (21:00)
[2021-04-14] MEDS ORDERED: IOHEXOL 300 MG/ML 100ML BOTTLE IJ ONE (21:43)
[2021-04-15 03:13] LABS: Urine Bacteria MANY /hpf (None Seen); Urine Blood Negative /uL (Negative); Urine Mucus FEW (None Seen); Urine Specific Gravity 1.036 (1.001-1.035); Urine WBC 158 /hpf (0 - 3); Urine WBC Clumps PRESENT /hpf (None Seen)
[2021-04-15] MEDS: CLINDAMYCIN 600MG IV 50 ML IV SCH ×4 (04:47→15:44)
[2021-04-15] MEDS: PHENobarbital 32.4 MG TAB PO SCH ×3 (04:47→21:33)
[2021-04-15] MEDS: PHENYTOIN SODIUM 100 MG CAP PO SCH ×3 (04:47→21:32)
[2021-04-15] MEDS: TOPIRAMATE 100 MG TAB PO SCH ×3 (04:48→21:33)
[2021-04-15] MEDS: FAMOTIDINE 20 MG TAB PO SCH ×3 (04:48→21:33)
[2021-04-15 05:22] VITALS: BP 126/72
[2021-04-15] MEDS: cefTRIAXone 1GM/50ML D5W 50 ML IV SCH (08:28)
[2021-04-15 08:36] LABS: Basophils # (auto) 0 10 ^3/uL (0-0.2); Basophils % (auto) 0.5 % (0.0-2.0); Eosinophils # (auto) 0.1 10 ^3/uL (0-0.8); Eosinophils % (auto) 1.9 % (0.0-7.0); Hematocrit 32.5 % (41.0-53.0); Hemoglobin 10.9 g/dL (13.5-17.5); Lymphocytes # (auto) 0.4 10 ^3/uL (0.4-5.4); Lymphocytes % (auto) 8.8 % (10.0-50.0); Mean Corpuscular Hemoglobin 32.4 pg (28.0-32.0); Mean Corpuscular Hgb Conc. 33.6 g/dL (32.0-36.0); Mean Corpuscular Volume 96.3 fL (80.0-100.0); Monocytes # (auto) 0.4 10 ^3/uL (0-1.3); Monocytes % (auto) 7.5 % (0.0-12.0); Neutrophils # (auto) 3.8 10 ^3/uL (1.6-8.6); Neutrophils % (auto) 81.3 % (37.0-80.0); Nucleated Red Blood Cells % 0.2 %; Red Blood Cells 3.37 10^6/uL (4.5-5.90); Red Cell Distribution Width 17.4 % (11.8-14.3); White Blood Cell 4.7 10^3/uL (4.4-10.8)
[2021-04-15 09:00] VITALS: BP 130/75
[2021-04-15 09:05] LABS: Albumin 2.4 g/dL (3.4-5.0); Calcium 8.4 mg/dL (8.5-10.1); Potassium 3.8 mmol/L (3.5-5.1)
[2021-04-15 09:09] LABS: BUN/Creatinine Ratio 20.5; Bilirubin, Total 0.2 mg/dL (0.2-1.0); Total Protein 7.4 g/dL (6.4-8.2)
[2021-04-15 13:00] VITALS: BP 154/82
[2021-04-15] MEDS ORDERED: VANCOMYCIN PER PHARMACY 0 MG IV SCH (15:45)
[2021-04-15 17:00] VITALS: BP 126/64
[2021-04-15] MEDS: VANCOMYCIN 1GM/250ML 250 ML IV SCH (17:30)
[2021-04-15] MEDS: ENOXAPARIN SOD 100 MG/1 ML SYRINGE SC SCH (21:32)
[2021-04-15] MEDS: DOCUSATE SOD 100 MG CAP PO SCH (21:33)
[2021-04-15 22:00] VITALS: BP 139/81
[2021-04-16] MEDS: VANCOMYCIN 1GM/250ML 250 ML IV SCH ×3 (02:03→22:35)
[2021-04-16 05:17] VITALS: BP 129/78
[2021-04-16 08:35] VITALS: BP 125/79
[2021-04-16] MEDS: cefTRIAXone 1GM/50ML D5W 50 ML IV SCH (09:06)
[2021-04-16] MEDS: ENOXAPARIN SOD 100 MG/1 ML SYRINGE SC SCH ×2 (10:06→22:37)
[2021-04-16] MEDS: DOCUSATE SOD 100 MG CAP PO SCH ×2 (10:06→22:33)
[2021-04-16] MEDS: PHENYTOIN SODIUM 100 MG CAP PO SCH ×2 (10:07→22:34)
[2021-04-16] MEDS: PHENobarbital 32.4 MG TAB PO SCH ×2 (10:07→22:36)
[2021-04-16] MEDS: FAMOTIDINE 20 MG TAB PO SCH ×2 (10:08→22:35)
[2021-04-16] MEDS: TOPIRAMATE 100 MG TAB PO SCH ×2 (10:08→22:36)
[2021-04-16 12:54] VITALS: BP_SYST 125; BP_DIAS 79; BP_DIAS 80
[2021-04-16 17:18] VITALS: BP 100/61
[2021-04-16 22:00] VITALS: BP 120/70
[2021-04-17 05:00] VITALS: BP 122/62
[2021-04-17 07:51] LABS: Anion Gap 7 (5-15); BUN/Creatinine Ratio 17.6; Blood Urea Nitrogen 6 mg/dL (7-18); Calcium 8.2 mg/dL (8.5-10.1); Carbon Dioxide 21 mmol/L (21-32); Chloride 112 mmol/L (98-107); GFR African American 339 mL/min; GFR Non-African American 280 mL/min; Glucose 76 mg/dL (74-106); Potassium 3.8 mmol/L (3.5-5.1); Sodium 140 mmol/L (136-145)
[2021-04-17 09:05] VITALS: BP 115/72
[2021-04-17] MEDS: ENOXAPARIN SOD 100 MG/1 ML SYRINGE SC SCH ×2 (09:12→21:39)
[2021-04-17] MEDS: PHENYTOIN SODIUM 100 MG CAP PO SCH ×2 (09:12→21:40)
[2021-04-17] MEDS: FAMOTIDINE 20 MG TAB PO SCH ×2 (09:12→21:39)
[2021-04-17] MEDS: DOCUSATE SOD 100 MG CAP PO SCH ×2 (09:12→21:40)
[2021-04-17] MEDS: cefTRIAXone 1GM/50ML D5W 50 ML IV SCH (09:12)
[2021-04-17] MEDS: TOPIRAMATE 100 MG TAB PO SCH ×2 (10:37→21:47)
[2021-04-17] MEDS: PHENobarbital 32.4 MG TAB PO SCH ×2 (10:37→21:40)
[2021-04-17] MEDS: VANCOMYCIN 1GM/250ML 250 ML IV SCH ×2 (10:38→21:41)
[2021-04-17 11:18] LABS: Basophils # (auto) 0 10 ^3/uL (0-0.2); Basophils % (auto) 0.5 % (0.0-2.0); Eosinophils # (auto) 0.1 10 ^3/uL (0-0.8); Eosinophils % (auto) 2.5 % (0.0-7.0); Hematocrit 31.1 % (41.0-53.0); Hemoglobin 10.9 g/dL (13.5-17.5); Lymphocytes # (auto) 0.4 10 ^3/uL (0.4-5.4); Lymphocytes % (auto) 10.7 % (10.0-50.0); Mean Corpuscular Hemoglobin 32.8 pg (28.0-32.0); Mean Corpuscular Volume 93.8 fL (80.0-100.0); Monocytes # (auto) 0.4 10 ^3/uL (0-1.3); Monocytes % (auto) 10.3 % (0.0-12.0); Neutrophils # (auto) 2.7 10 ^3/uL (1.6-8.6); Nucleated Red Blood Cells % 0.1 %; Red Blood Cells 3.31 10^6/uL (4.5-5.90); Red Cell Distribution Width 17.2 % (11.8-14.3); White Blood Cell 3.5 10^3/uL (4.4-10.8)
[2021-04-17 13:12] VITALS: BP 125/79
[2021-04-17 17:30] VITALS: BP 125/79
[2021-04-17 21:42] VITALS: BP 128/75
[2021-04-18 04:59] VITALS: BP 117/83
[2021-04-18 09:00] VITALS: BP 112/75
[2021-04-18] MEDS: DOCUSATE SOD 100 MG CAP PO SCH ×2 (09:12→23:03)
[2021-04-18] MEDS: cefTRIAXone 1GM/50ML D5W 50 ML IV SCH (09:12)
[2021-04-18] MEDS: PHENYTOIN SODIUM 100 MG CAP PO SCH ×2 (09:13→23:03)
[2021-04-18] MEDS: FAMOTIDINE 20 MG TAB PO SCH ×2 (09:13→23:03)
[2021-04-18] MEDS: ENOXAPARIN SOD 100 MG/1 ML SYRINGE SC SCH ×2 (09:13→23:04)
[2021-04-18] MEDS: TOPIRAMATE 100 MG TAB PO SCH ×2 (09:14→23:04)
[2021-04-18] MEDS: PHENobarbital 32.4 MG TAB PO SCH ×2 (09:14→23:03)
[2021-04-18 09:27] LABS: Basophils # (auto) 0 10 ^3/uL (0-0.2); Basophils % (auto) 0.7 % (0.0-2.0); Eosinophils # (auto) 0.1 10 ^3/uL (0-0.8); Eosinophils % (auto) 2.8 % (0.0-7.0); Hematocrit 32.4 % (41.0-53.0); Hemoglobin 11.3 g/dL (13.5-17.5); Lymphocytes # (auto) 0.3 10 ^3/uL (0.4-5.4); Lymphocytes % (auto) 11.9 % (10.0-50.0); Mean Corpuscular Hemoglobin 32.5 pg (28.0-32.0); Mean Corpuscular Hgb Conc. 34.8 g/dL (32.0-36.0); Mean Corpuscular Volume 93.4 fL (80.0-100.0); Monocytes # (auto) 0.2 10 ^3/uL (0-1.3); Monocytes % (auto) 6.9 % (0.0-12.0); Neutrophils % (auto) 77.7 % (37.0-80.0); Nucleated Red Blood Cells % 0.1 %; Red Blood Cells 3.47 10^6/uL (4.5-5.90); Red Cell Distribution Width 17.3 % (11.8-14.3); White Blood Cell 2.5 10^3/uL (4.4-10.8)
[2021-04-18 13:00] VITALS: BP 122/78
[2021-04-18] MEDS: VANCOMYCIN 1GM/250ML 250 ML IV SCH (16:08)
[2021-04-18 17:00] VITALS: BP 124/72
[2021-04-18 21:55] VITALS: BP 121/66
[2021-04-19 04:38] VITALS: BP 123/78
[2021-04-19 08:40] VITALS: BP 107/74
[2021-04-19] MEDS: CEFEPIME 1 GM in NS 0.9% 50 ML IV SCH ×2 (09:07→17:59)
[2021-04-19] MEDS: VANCOMYCIN 1GM/250ML 250 ML IV SCH (11:01)
[2021-04-19] MEDS: FAMOTIDINE 20 MG TAB PO SCH ×2 (11:02→22:08)
[2021-04-19] MEDS: PHENobarbital 32.4 MG TAB PO SCH ×2 (11:02→22:08)
[2021-04-19] MEDS: TOPIRAMATE 100 MG TAB PO SCH ×2 (11:03→22:07)
[2021-04-19] MEDS: ENOXAPARIN SOD 100 MG/1 ML SYRINGE SC SCH ×2 (11:04→22:08)
[2021-04-19] MEDS: PHENYTOIN SODIUM 100 MG CAP PO SCH ×2 (11:04→22:08)
[2021-04-19] MEDS: DOCUSATE SOD 100 MG CAP PO SCH ×2 (11:04→22:07)
[2021-04-19 12:31] VITALS: BP 133/69
[2021-04-19 17:10] VITALS: BP 134/86
[2021-04-19 22:00] VITALS: BP 142/86
[2021-04-20] MEDS: CEFEPIME 1 GM in NS 0.9% 50 ML IV SCH (01:25)
[2021-04-20] MEDS: VANCOMYCIN 1GM/250ML 250 ML IV SCH ×2 (04:05→22:49)
[2021-04-20 05:00] VITALS: BP 109/80
[2021-04-20 08:30] VITALS: BP_SYST 119; BP_SYST 142; BP_DIAS 57; BP_DIAS 89
[2021-04-20] MEDS ORDERED: cefTAZidime 2GM/NS 50 ML IV SCH (09:00)
[2021-04-20] MEDS: ENOXAPARIN SOD 100 MG/1 ML SYRINGE SC SCH ×2 (09:28→21:41)
[2021-04-20] MEDS: PHENYTOIN SODIUM 100 MG CAP PO SCH ×2 (09:29→21:40)
[2021-04-20] MEDS: DOCUSATE SOD 100 MG CAP PO SCH ×2 (09:29→21:40)
[2021-04-20] MEDS: PHENobarbital 32.4 MG TAB PO SCH ×2 (09:30→21:40)
[2021-04-20] MEDS: TOPIRAMATE 100 MG TAB PO SCH ×2 (09:30→21:41)
[2021-04-20] MEDS: FAMOTIDINE 20 MG TAB PO SCH ×2 (09:30→21:41)
[2021-04-20 12:30] VITALS: BP 110/67
[2021-04-20 17:00] VITALS: BP 117/68
[2021-04-20] MEDS: MEROPENEM 1GM IVPB 100 ML IV SCH ×2 (18:28→21:40)
[2021-04-20 21:34] VITALS: BP 130/72
[2021-04-21 04:58] VITALS: BP 119/81
[2021-04-21] MEDS: MEROPENEM 1GM IVPB 100 ML IV SCH ×2 (05:58→13:58)
[2021-04-21 08:56] VITALS: BP 135/73
[2021-04-21] MEDS: DOCUSATE SOD 100 MG CAP PO SCH (10:06)
[2021-04-21] MEDS: PHENYTOIN SODIUM 100 MG CAP PO SCH (10:06)
[2021-04-21] MEDS: PHENobarbital 32.4 MG TAB PO SCH (10:06)
[2021-04-21] MEDS: TOPIRAMATE 100 MG TAB PO SCH (10:07)
[2021-04-21] MEDS: FAMOTIDINE 20 MG TAB PO SCH (10:07)
[2021-04-21] MEDS: ENOXAPARIN SOD 100 MG/1 ML SYRINGE SC SCH (10:07)
[2021-04-21 12:48] VITALS: BP 134/77
== END 2021-04-21 15:12 | disposition short-term general hospital (02) | DRG 539 ==
LOC: ER 16:01 → OVERFLOW 22:47 → CENTRAL 04-15 00:05
PROVIDERS: ADMIT Nurse Practitioner; ATTEND Internal Medicine
PROC: 05H933Z Insertion of Infusion Device into Right Brachial Vein, Percutaneous Approach (ICD-10-PCS; principal; 2021-04-14)
PROC: B54MZZA Ultrasonography of Right Upper Extremity Veins, Guidance (ICD-10-PCS; 2021-04-14)
DX: M86.9 Osteomyelitis, unspecified (principal); L89.104 Pressure ulcer of unspecified part of back, stage 4; G82.50 Quadriplegia, unspecified; L03.317 Cellulitis of buttock; I10 Essential (primary) hypertension; G40.909 Epilepsy, unspecified, not intractable, without status epilepticus; Z20.822 Contact with and (suspected) exposure to COVID-19; N20.0 Calculus of kidney; Z74.01 Bed confinement status; Z87.820 Personal history of traumatic brain injury; Z90.49 Acquired absence of other specified parts of digestive tract; Z82.49 Family history of ischemic heart disease and other diseases of the circulatory system
CPT/HCPCS: 36415; 71045; 74177; 80048; 80053; 80185; 80202; 81001; 82565; 83605; 85025; 85049; 87040; 87077; 87081; 87186; 87205; 87426; 93005; 96365; G0378; J0696; J0713; J2185; J3490

== ENCOUNTER 2021-10-03 17:14 | Inpatient (IN) | payer OTHER ==
[~2021-10-03] VITALS: Ht 182.9 cm; Wt 112.1 kg
[~2021-10-03 17:14] MED LIST changes: -AMOX500T86 PO; -APIX5TAB PO; +APIXABAN 5 MG TAB PO SCH; +CEPH-322 PO; -CIPR-173 PO; -PHEN100C PO; -TOPI100T68 PO; -TOPI200T43 PO; +TOPI25CA5 PO
[2021-10-03] MEDS ORDERED: SODIUM CHLORIDE 0.9% 1,000 ML IV ONE ×2 (17:30→20:15)
[2021-10-03] MEDS ORDERED: cefTRIAXone 1GM/50ML D5W 50 ML IV ONE (17:30)
[2021-10-03 18:37] LABS: Urine Bacteria NONE SEEN /hpf (None Seen); Urine Blood TRACE /uL (Negative); Urine Mucus FEW (None Seen); Urine WBC 131 /hpf (0 - 3)
[2021-10-03 18:46] LABS: Basophils # (auto) 0 10 ^3/uL (0-0.2); Basophils % (auto) 0.2 % (0.0-2.0); Eosinophils # (auto) 0.1 10 ^3/uL (0-0.8); Eosinophils % (auto) 0.8 % (0.0-7.0); Hematocrit 38.4 % (41.0-53.0); Hemoglobin 13.2 g/dL (13.5-17.5); Lymphocytes # (auto) 0.6 10 ^3/uL (0.4-5.4); Lymphocytes % (auto) 6.8 % (10.0-50.0); Mean Corpuscular Hemoglobin 33.3 pg (28.0-32.0); Mean Corpuscular Hgb Conc. 34.5 g/dL (32.0-36.0); Mean Corpuscular Volume 96.8 fL (80.0-100.0); Monocytes # (auto) 1.1 10 ^3/uL (0-1.3); Neutrophils # (auto) 6.5 10 ^3/uL (1.6-8.6); Neutrophils % (auto) 79.2 % (37.0-80.0); Nucleated Red Blood Cells % 0.1 %; Red Blood Cells 3.97 10^6/uL (4.5-5.90); Red Cell Distribution Width 14.8 % (11.8-14.3); White Blood Cell 8.2 10^3/uL (4.4-10.8)
[2021-10-03 19:04] LABS: Albumin 3.3 g/dL (3.4-5.0); Calcium 8.7 mg/dL (8.5-10.1); Potassium 4.2 mmol/L (3.5-5.1)
[2021-10-03 19:11] LABS: BUN/Creatinine Ratio 18.9; Bilirubin, Total 0.4 mg/dL (0.2-1.0); Total Protein 7.3 g/dL (6.4-8.2)
[2021-10-03] MEDS ORDERED: PIPERACILLIN-TAZOB 3.375GM 100 ML IV ONE (20:15)
[2021-10-03] MEDS ORDERED: VANCOMYCIN 1GM/250ML 250 ML IV ONE (20:15)
[2021-10-03] MEDS ORDERED: ONDANSETRON HCL 4 MG/2 ML VIAL IV PRN (22:30)
[2021-10-03] MEDS ORDERED: ACETAMINOPHEN 325 MG TAB PO PRN (22:30)
[2021-10-03] MEDS ORDERED: VANCOMYCIN PER PHARMACY 0 MG IV SCH (22:30)
[2021-10-03] MEDS ORDERED: DOCUSATE SOD 100 MG CAP PO PRN (22:30)
[2021-10-04] MEDS ORDERED: MORPHINE SULFATE INJECTION 2 MG/ML SYRG IV PRN (00:45)
[2021-10-04] MEDS ORDERED: NITROGLYCERIN 0.4 MG SL TAB SL PRN (00:45)
[2021-10-04] MEDS: HYDROcodone-ACET 5/325MG TAB PO PRN ×2 (04:18→22:18)
[2021-10-04 05:00] VITALS: BP 133/63
[2021-10-04] MEDS: SODIUM CHLOR 0.9% PF (SALINE LOCK) 10ML VIAL/SYR IV SCH ×3 (06:00→22:18)
[2021-10-04 07:00] VITALS: BP 125/83
[2021-10-04] MEDS: PHENYTOIN SODIUM 100 MG CAP PO SCH ×2 (08:22→22:17)
[2021-10-04] MEDS: ENOXAPARIN SOD 40 MG/0.4 ML SYRINGE SC SCH (08:22)
[2021-10-04] MEDS: FAMOTIDINE (10MG/ML) 2ML VL IV SCH (08:22)
[2021-10-04] MEDS: PHENobarbital 32.4 MG TAB PO SCH ×2 (08:22→22:17)
[2021-10-04] MEDS: TOPIRAMATE 100 MG TAB PO SCH ×2 (08:23→22:18)
[2021-10-04] MEDS ORDERED: cefTRIAXone 1GM/50ML D5W 50 ML IV SCH (09:00)
[2021-10-04 13:00] VITALS: BP 124/61
[2021-10-04] MEDS: VANCOMYCIN 1GM/250ML 250 ML IV SCH (14:09)
[2021-10-04] MEDS: MEROPENEM 1GM IVPB 100 ML IV SCH ×2 (14:09→22:17)
[2021-10-04 14:48] LABS: Basophils # (auto) 0 10 ^3/uL (0-0.2); Basophils % (auto) 0.3 % (0.0-2.0); Eosinophils # (auto) 0 10 ^3/uL (0-0.8); Eosinophils % (auto) 0.6 % (0.0-7.0); Hematocrit 36.7 % (41.0-53.0); Hemoglobin 12.5 g/dL (13.5-17.5); Lymphocytes # (auto) 0.5 10 ^3/uL (0.4-5.4); Mean Corpuscular Hemoglobin 32.3 pg (28.0-32.0); Mean Corpuscular Hgb Conc. 33.9 g/dL (32.0-36.0); Mean Corpuscular Volume 95.4 fL (80.0-100.0); Monocytes # (auto) 0.9 10 ^3/uL (0-1.3); Monocytes % (auto) 12.9 % (0.0-12.0); Neutrophils # (auto) 5.5 10 ^3/uL (1.6-8.6); Neutrophils % (auto) 79.2 % (37.0-80.0); Nucleated Red Blood Cells % 0.1 %; Red Blood Cells 3.85 10^6/uL (4.5-5.90); Red Cell Distribution Width 14.5 % (11.8-14.3); White Blood Cell 6.9 10^3/uL (4.4-10.8)
[2021-10-04 15:05] LABS: Albumin 2.8 g/dL (3.4-5.0); Calcium 8.5 mg/dL (8.5-10.1); Potassium 4.1 mmol/L (3.5-5.1)
[2021-10-04 15:07] LABS: BUN/Creatinine Ratio 22.8
[2021-10-04 15:09] LABS: Bilirubin, Total 0.4 mg/dL (0.2-1.0); Total Protein 6.7 g/dL (6.4-8.2)
[2021-10-04 17:00] VITALS: BP 109/59
[2021-10-05] VITALS (7 sets, daily range): BP systolic 111–147; BP diastolic 53–69
[2021-10-05] MEDS: VANCOMYCIN 1GM/250ML 250 ML IV SCH ×2 (00:16→12:16)
[2021-10-05] MEDS: MEROPENEM 1GM IVPB 100 ML IV SCH ×3 (05:43→22:13)
[2021-10-05] MEDS: SODIUM CHLOR 0.9% PF (SALINE LOCK) 10ML VIAL/SYR IV SCH ×3 (05:44→22:14)
[2021-10-05] MEDS: PHENobarbital 32.4 MG TAB PO SCH ×2 (09:39→22:14)
[2021-10-05] MEDS: ENOXAPARIN SOD 40 MG/0.4 ML SYRINGE SC SCH (09:39)
[2021-10-05] MEDS: TOPIRAMATE 100 MG TAB PO SCH ×2 (09:40→22:15)
[2021-10-05] MEDS: PHENYTOIN SODIUM 100 MG CAP PO SCH ×2 (09:40→22:14)
[2021-10-05] MEDS: FAMOTIDINE (10MG/ML) 2ML VL IV SCH (09:40)
[2021-10-06] MEDS: VANCOMYCIN 1GM/250ML 250 ML IV SCH ×2 (02:06→12:32)
[2021-10-06 05:00] VITALS: BP 132/67
[2021-10-06] MEDS: SODIUM CHLOR 0.9% PF (SALINE LOCK) 10ML VIAL/SYR IV SCH ×3 (05:44→22:52)
[2021-10-06] MEDS: MEROPENEM 1GM IVPB 100 ML IV SCH ×3 (05:44→22:51)
[2021-10-06 09:00] VITALS: BP 134/69
[2021-10-06] MEDS: FAMOTIDINE (10MG/ML) 2ML VL IV SCH (10:05)
[2021-10-06] MEDS: TOPIRAMATE 100 MG TAB PO SCH ×2 (10:06→22:50)
[2021-10-06] MEDS: PHENobarbital 32.4 MG TAB PO SCH ×2 (10:06→22:50)
[2021-10-06] MEDS: ENOXAPARIN SOD 40 MG/0.4 ML SYRINGE SC SCH (10:06)
[2021-10-06] MEDS: PHENYTOIN SODIUM 100 MG CAP PO SCH ×2 (10:07→22:50)
[2021-10-06 13:00] VITALS: BP 133/73
[2021-10-06 14:48] LABS: Basophils # (auto) 0 10 ^3/uL (0-0.2); Basophils % (auto) 0.3 % (0.0-2.0); Eosinophils # (auto) 0 10 ^3/uL (0-0.8); Eosinophils % (auto) 0.6 % (0.0-7.0); Hemoglobin 11.9 g/dL (13.5-17.5); Lymphocytes # (auto) 0.2 10 ^3/uL (0.4-5.4); Lymphocytes % (auto) 5.5 % (10.0-50.0); Mean Corpuscular Hemoglobin 32.9 pg (28.0-32.0); Mean Corpuscular Hgb Conc. 34.9 g/dL (32.0-36.0); Mean Corpuscular Volume 94.3 fL (80.0-100.0); Monocytes # (auto) 0.5 10 ^3/uL (0-1.3); Monocytes % (auto) 16.3 % (0.0-12.0); Neutrophils # (auto) 2.2 10 ^3/uL (1.6-8.6); Neutrophils % (auto) 77.3 % (37.0-80.0); Red Blood Cells 3.61 10^6/uL (4.5-5.90); Red Cell Distribution Width 14.1 % (11.8-14.3); White Blood Cell 2.9 10^3/uL (4.4-10.8)
[2021-10-06 15:07] LABS: BUN/Creatinine Ratio 22.2; Calcium 8.6 mg/dL (8.5-10.1); Potassium 3.6 mmol/L (3.5-5.1)
[2021-10-06 16:43] VITALS: BP 145/74
[2021-10-06 20:00] VITALS: BP 137/86
[2021-10-06 22:00] VITALS: BP 137/86
[2021-10-07] VITALS (7 sets, daily range): BP systolic 113–141; BP diastolic 57–71
[2021-10-07] MEDS: VANCOMYCIN 1GM/250ML 250 ML IV SCH ×2 (00:20→12:28)
[2021-10-07] MEDS: MEROPENEM 1GM IVPB 100 ML IV SCH ×2 (05:54→15:04)
[2021-10-07] MEDS: SODIUM CHLOR 0.9% PF (SALINE LOCK) 10ML VIAL/SYR IV SCH ×3 (05:55→23:29)
[2021-10-07 07:00] LABS: Hematocrit 32.3 % (41.0-53.0); Hemoglobin 11.3 g/dL (13.5-17.5); Mean Corpuscular Hgb Conc. 34.8 g/dL (32.0-36.0); Mean Corpuscular Volume 94.7 fL (80.0-100.0); Red Blood Cells 3.41 10^6/uL (4.5-5.90); Red Cell Distribution Width 14.1 % (11.8-14.3)
[2021-10-07 07:17] LABS: White Blood Cell 1.9 10^3/uL (4.4-10.8)
[2021-10-07 07:18] LABS: Basophils % (manual) 0 (0.0-2.0); Blast Cells 0; Metamyelocytes % 0; Myelocytes % 0; Promyelocytes % 0; Reactive Lymphocytes 0
[2021-10-07 08:28] LABS: Band Neutrophils % (manual) 7; Eosinophils % (manual) 1 (0-7); Lymphocytes % (manual) 21 (10.0-50.0); Monocytes % (manual) 4 (0-12)
[2021-10-07] MEDS: ENOXAPARIN SOD 40 MG/0.4 ML SYRINGE SC SCH (10:37)
[2021-10-07] MEDS: FAMOTIDINE (10MG/ML) 2ML VL IV SCH (10:41)
[2021-10-07] MEDS: PHENobarbital 32.4 MG TAB PO SCH ×2 (10:42→23:29)
[2021-10-07] MEDS: TOPIRAMATE 100 MG TAB PO SCH ×2 (10:42→23:32)
[2021-10-07] MEDS: PHENYTOIN SODIUM 100 MG CAP PO SCH ×2 (10:42→23:29)
[2021-10-08] VITALS (7 sets, daily range): BP systolic 103–142; BP diastolic 69–81
[2021-10-08] MEDS: VANCOMYCIN 1GM/250ML 250 ML IV SCH (00:28)
[2021-10-08] MEDS: SODIUM CHLOR 0.9% PF (SALINE LOCK) 10ML VIAL/SYR IV SCH ×3 (06:00→22:03)
[2021-10-08 06:38] LABS: Hemoglobin 12.4 g/dL (13.5-17.5); Mean Corpuscular Hemoglobin 33.1 pg (28.0-32.0)
[2021-10-08 06:41] LABS: Mean Corpuscular Hgb Conc. 35.3 g/dL (32.0-36.0); Mean Corpuscular Volume 93.6 fL (80.0-100.0); Red Blood Cells 3.74 10^6/uL (4.5-5.90); Red Cell Distribution Width 14.3 % (11.8-14.3)
[2021-10-08 07:10] LABS: Albumin 2.8 g/dL (3.4-5.0); Calcium 8.6 mg/dL (8.5-10.1); Potassium 3.7 mmol/L (3.5-5.1)
[2021-10-08 07:12] LABS: BUN/Creatinine Ratio 19.1
[2021-10-08 07:15] LABS: Bilirubin, Total 0.2 mg/dL (0.2-1.0); Total Protein 6.8 g/dL (6.4-8.2)
[2021-10-08 07:57] LABS: White Blood Cell 1.4 10^3/uL (4.4-10.8)
[2021-10-08 07:58] LABS: Basophils % (manual) 0 (0.0-2.0); Blast Cells 0; Metamyelocytes % 0; Myelocytes % 0; Promyelocytes % 0; Reactive Lymphocytes 0
[2021-10-08] MEDS: CEFTRIAXONE SODIUM 2 GM in D5W 5% 50 ML IV SCH (10:44)
[2021-10-08] MEDS: FAMOTIDINE (10MG/ML) 2ML VL IV SCH (10:45)
[2021-10-08] MEDS: PHENobarbital 32.4 MG TAB PO SCH ×2 (10:45→22:07)
[2021-10-08] MEDS: PHENYTOIN SODIUM 100 MG CAP PO SCH ×2 (10:46→22:07)
[2021-10-08] MEDS: TOPIRAMATE 100 MG TAB PO SCH ×2 (10:46→22:06)
[2021-10-08 11:11] LABS: Band Neutrophils % (manual) 2; Eosinophils % (manual) 2 (0-7); Lymphocytes % (manual) 29 (10.0-50.0); Monocytes % (manual) 17 (0-12)
[2021-10-08] MEDS ORDERED: DOXYCYCLINE 100MG/250ML 250 ML IV SCH (11:30)
[2021-10-08] MEDS ORDERED: PHENobarbital 32.4 MG TAB PO SCH (16:30)
[2021-10-08] MEDS ORDERED: LORazepam 2MG/ML-1ML VIAL IV PRN (16:30)
[2021-10-08] MEDS: DAPTOmycin 750 MG in SODIUM CHL 0.9% 50 ML IV SCH (18:15)
[2021-10-08] MEDS: APIXABAN 5 MG TAB PO SCH (22:07)
[2021-10-09 05:00] VITALS: BP 128/63
[2021-10-09] MEDS: SODIUM CHLOR 0.9% PF (SALINE LOCK) 10ML VIAL/SYR IV SCH ×3 (06:38→22:08)
[2021-10-09 06:58] LABS: Basophils # (auto) 0 10 ^3/uL (0-0.2); Basophils % (auto) 0.5 % (0.0-2.0); Eosinophils # (auto) 0 10 ^3/uL (0-0.8); Hematocrit 36.6 % (41.0-53.0); Hemoglobin 12.3 g/dL (13.5-17.5); Lymphocytes # (auto) 0.4 10 ^3/uL (0.4-5.4); Lymphocytes % (auto) 22.5 % (10.0-50.0); Mean Corpuscular Hemoglobin 31.7 pg (28.0-32.0); Mean Corpuscular Hgb Conc. 33.5 g/dL (32.0-36.0); Mean Corpuscular Volume 94.6 fL (80.0-100.0); Monocytes # (auto) 0.3 10 ^3/uL (0-1.3); Neutrophils # (auto) 0.9 10 ^3/uL (1.6-8.6); Nucleated Red Blood Cells % 0.3 %; Red Blood Cells 3.87 10^6/uL (4.5-5.90); Red Cell Distribution Width 14.2 % (11.8-14.3)
[2021-10-09 06:59] LABS: Potassium 3.6 mmol/L (3.5-5.1)
[2021-10-09 07:02] LABS: White Blood Cell 1.6 10^3/uL (4.4-10.8)
[2021-10-09 07:14] LABS: BUN/Creatinine Ratio 18.4; Calcium 8.6 mg/dL (8.5-10.1)
[2021-10-09 09:00] VITALS: BP 107/61
[2021-10-09] MEDS ORDERED: DAPTOmycin 0 MG in SODIUM CHL 0.9% 50 ML IV SCH (10:00)
[2021-10-09] MEDS: PHENobarbital 32.4 MG TAB PO SCH ×2 (10:35→22:09)
[2021-10-09] MEDS: CEFTRIAXONE SODIUM 2 GM in D5W 5% 50 ML IV SCH (10:35)
[2021-10-09] MEDS: FAMOTIDINE (10MG/ML) 2ML VL IV SCH (10:35)
[2021-10-09] MEDS: APIXABAN 5 MG TAB PO SCH ×2 (10:36→22:09)
[2021-10-09] MEDS: PHENYTOIN SODIUM 100 MG CAP PO SCH ×2 (10:36→22:09)
[2021-10-09] MEDS: TOPIRAMATE 100 MG TAB PO SCH ×2 (10:36→22:10)
[2021-10-09] MEDS: FILGRASTIM(TBO) 480 MCG/0.8 ML SYRG SC SCH (10:41)
[2021-10-09] MEDS ORDERED: DOCUSATE SOD 100 MG CAP PO PRN (10:45)
[2021-10-09 13:00] VITALS: BP 107/63
[2021-10-09 17:00] VITALS: BP 123/80
[2021-10-09] MEDS: DAPTOmycin 750 MG in SODIUM CHL 0.9% 50 ML IV SCH (18:10)
[2021-10-09 22:00] VITALS: BP 128/70
[2021-10-09] MEDS: SENNA 8.6 MG TAB PO SCH (22:10)
[2021-10-10 05:00] VITALS: BP 112/62
[2021-10-10] MEDS: SODIUM CHLOR 0.9% PF (SALINE LOCK) 10ML VIAL/SYR IV SCH ×3 (06:30→23:17)
[2021-10-10 09:00] VITALS: BP 110/64
[2021-10-10 11:31] LABS: Basophils # (auto) 0 10 ^3/uL (0-0.2); Basophils % (auto) 0.1 % (0.0-2.0); Eosinophils # (auto) 0.1 10 ^3/uL (0-0.8); Eosinophils % (auto) 0.5 % (0.0-7.0); Hematocrit 33.6 % (41.0-53.0); Hemoglobin 11.6 g/dL (13.5-17.5); Lymphocytes # (auto) 0.5 10 ^3/uL (0.4-5.4); Lymphocytes % (auto) 4.2 % (10.0-50.0); Mean Corpuscular Hemoglobin 32.4 pg (28.0-32.0); Mean Corpuscular Hgb Conc. 34.6 g/dL (32.0-36.0); Mean Corpuscular Volume 93.5 fL (80.0-100.0); Monocytes # (auto) 0.4 10 ^3/uL (0-1.3); Monocytes % (auto) 3.6 % (0.0-12.0); Neutrophils # (auto) 9.7 10 ^3/uL (1.6-8.6); Neutrophils % (auto) 91.6 % (37.0-80.0); Red Cell Distribution Width 13.9 % (11.8-14.3); White Blood Cell 10.6 10^3/uL (4.4-10.8)
[2021-10-10] MEDS: FAMOTIDINE (10MG/ML) 2ML VL IV SCH (12:02)
[2021-10-10] MEDS: CEFTRIAXONE SODIUM 2 GM in D5W 5% 50 ML IV SCH (12:03)
[2021-10-10] MEDS: PHENobarbital 32.4 MG TAB PO SCH ×2 (12:03→23:17)
[2021-10-10] MEDS: PHENYTOIN SODIUM 100 MG CAP PO SCH ×2 (12:04→23:17)
[2021-10-10] MEDS: APIXABAN 5 MG TAB PO SCH ×2 (12:04→23:18)
[2021-10-10] MEDS: FILGRASTIM(TBO) 480 MCG/0.8 ML SYRG SC SCH (12:04)
[2021-10-10] MEDS: TOPIRAMATE 100 MG TAB PO SCH ×2 (12:05→23:18)
[2021-10-10 17:21] VITALS: BP 119/69
[2021-10-10] MEDS: DAPTOmycin 750 MG in SODIUM CHL 0.9% 50 ML IV SCH (18:10)
[2021-10-10 22:00] VITALS: BP 116/65
[2021-10-10] MEDS: SENNA 8.6 MG TAB PO SCH (23:18)
[2021-10-11 05:12] VITALS: BP 143/56
[2021-10-11 06:03] VITALS: BP 108/62
[2021-10-11 06:04] LABS: Hemoglobin 11.9 g/dL (13.5-17.5)
[2021-10-11 06:07] LABS: Mean Corpuscular Volume 94.1 fL (80.0-100.0); Red Blood Cells 3.72 10^6/uL (4.5-5.90); Red Cell Distribution Width 14.1 % (11.8-14.3); White Blood Cell 15.7 10^3/uL (4.4-10.8)
[2021-10-11 06:10] LABS: Basophils % (manual) 0 (0.0-2.0); Blast Cells 0; Metamyelocytes % 0; Promyelocytes % 0; Reactive Lymphocytes 0
[2021-10-11 06:43] LABS: Eosinophils % (manual) 1 (0-7); Monocytes % (manual) 3 (0-12); Myelocytes % 3
[2021-10-11 06:53] LABS: Band Neutrophils % (manual) 30; Lymphocytes % (manual) 5 (10.0-50.0)
[2021-10-11] MEDS: SODIUM CHLOR 0.9% PF (SALINE LOCK) 10ML VIAL/SYR IV SCH ×3 (06:56→22:28)
[2021-10-11 08:40] VITALS: BP 112/61
[2021-10-11] MEDS: FAMOTIDINE (10MG/ML) 2ML VL IV SCH (09:13)
[2021-10-11] MEDS: APIXABAN 5 MG TAB PO SCH ×2 (09:14→22:29)
[2021-10-11] MEDS: PHENobarbital 32.4 MG TAB PO SCH ×2 (09:14→22:28)
[2021-10-11] MEDS: PHENYTOIN SODIUM 100 MG CAP PO SCH ×2 (09:14→22:29)
[2021-10-11] MEDS: CEFTRIAXONE SODIUM 2 GM in D5W 5% 50 ML IV SCH (09:14)
[2021-10-11] MEDS: TOPIRAMATE 100 MG TAB PO SCH ×2 (09:30→22:30)
[2021-10-11 13:00] VITALS: BP 110/54
[2021-10-11 16:52] VITALS: BP 104/61
[2021-10-11] MEDS: DAPTOmycin 750 MG in SODIUM CHL 0.9% 50 ML IV SCH (18:31)
[2021-10-11 21:54] VITALS: BP 144/77
[2021-10-11] MEDS: SENNA 8.6 MG TAB PO SCH (22:29)
[2021-10-12 05:05] VITALS: BP 125/68
[2021-10-12] MEDS: SODIUM CHLOR 0.9% PF (SALINE LOCK) 10ML VIAL/SYR IV SCH ×2 (05:42→14:00)
[2021-10-12 09:00] VITALS: BP 109/57
[2021-10-12] MEDS: TOPIRAMATE 100 MG TAB PO SCH (09:17)
[2021-10-12] MEDS: PHENobarbital 32.4 MG TAB PO SCH (09:17)
[2021-10-12] MEDS: APIXABAN 5 MG TAB PO SCH (09:17)
[2021-10-12] MEDS: PHENYTOIN SODIUM 100 MG CAP PO SCH (09:17)
[2021-10-12] MEDS: FAMOTIDINE (10MG/ML) 2ML VL IV SCH (09:18)
[2021-10-12] MEDS: CEFTRIAXONE SODIUM 2 GM in D5W 5% 50 ML IV SCH (09:41)
[2021-10-12 13:09] VITALS: BP 103/55
[2021-10-12 17:00] VITALS: BP 125/64
[2021-10-12] MEDS: DAPTOmycin 750 MG in SODIUM CHL 0.9% 50 ML IV SCH (17:55)
[2021-10-15] MEDS ORDERED: APIXABAN 5 MG TAB PO SCH (22:00)
== END 2021-10-12 20:00 | disposition home health service (06) | DRG 698 ==
LOC: ER 17:14 → OVERFLOW 10-04 00:40 → WEST WING 10-04 03:43
PROVIDERS: ADMIT Nurse Practitioner Family; ATTEND Hospitalist
PROC: 06HM33Z Insertion of Infusion Device into Right Femoral Vein, Percutaneous Approach (ICD-10-PCS; principal; 2021-10-04)
PROC: 05HC33Z Insertion of Infusion Device into Left Basilic Vein, Percutaneous Approach (ICD-10-PCS; 2021-10-12)
PROC: B54NZZA Ultrasonography of Left Upper Extremity Veins, Guidance (ICD-10-PCS; 2021-10-12)
DX: T83.511A Infection and inflammatory reaction due to indwelling urethral catheter, initial encounter (principal); A41.2 Sepsis due to unspecified staphylococcus; G82.50 Quadriplegia, unspecified; G40.209 Localization-related (focal) (partial) symptomatic epilepsy and epileptic syndromes with complex partial seizures, not intractable, without status epilepticus; I82.451 Acute embolism and thrombosis of right peroneal vein; I82.411 Acute embolism and thrombosis of right femoral vein; N39.0 Urinary tract infection, site not specified; F09 Unspecified mental disorder due to known physiological condition; E88.09 Other disorders of plasma-protein metabolism, not elsewhere classified; G89.29 Other chronic pain; M25.471 Effusion, right ankle; L89.90 Pressure ulcer of unspecified site, unspecified stage; Z20.822 Contact with and (suspected) exposure to COVID-19; B96.1 Klebsiella pneumoniae [K. pneumoniae] as the cause of diseases classified elsewhere; Z79.899 Other long term (current) drug therapy; Z82.49 Family history of ischemic heart disease and other diseases of the circulatory system; Z74.01 Bed confinement status; Z87.440 Personal history of urinary (tract) infections; Z86.718 Personal history of other venous thrombosis and embolism; Z79.01 Long term (current) use of anticoagulants; Z90.49 Acquired absence of other specified parts of digestive tract
CPT/HCPCS: 36415; 36556; 51702; 73620; 73700; 80048; 80053; 80202; 81001; 82565; 83605; 83735; 85007; 85025; 85027; 87040; 87077; 87086; 87186; 87426; 93005; 93306; 93970; 95819; 96361; 96365; 96366; 96367; 99291; G0378; J0696; J1447; J2185; J2543; J3490; J7060

== ENCOUNTER 2021-12-06 11:41 | Inpatient (IN) | payer OTHER ==
[~2021-12-06] VITALS: Ht 185.4 cm; Wt 98.6 kg
[~2021-12-06 11:41] MED LIST changes: -APIXABAN 5 MG TAB PO SCH; -CEPH-322 PO
[2021-12-06] MEDS ORDERED: cefTRIAXone 1GM/50ML D5W 50 ML IV ONE (12:00)
[2021-12-06] MEDS ORDERED: SODIUM CHLORIDE 0.9% 500 ML IV ONE (12:00)
[2021-12-06] MEDS ORDERED: ACETAMINOPHEN 325 MG TAB PO ONE (12:00)
[2021-12-06 12:35] LABS: Basophils # (auto) 0 10 ^3/uL (0-0.2); Eosinophils # (auto) 0 10 ^3/uL (0-0.8); Lymphocytes # (auto) 0.4 10 ^3/uL (0.4-5.4); Lymphocytes % (auto) 3.7 % (10.0-50.0)
[2021-12-06 12:37] LABS: Basophils % (auto) 0.2 % (0.0-2.0); Hemoglobin 18.1 g/dL (13.5-17.5); Mean Corpuscular Hemoglobin 31.9 pg (28.0-32.0); Mean Corpuscular Hgb Conc. 33.5 g/dL (32.0-36.0); Mean Corpuscular Volume 95.3 fL (80.0-100.0); Neutrophils # (auto) 9.3 10 ^3/uL (1.6-8.6); Neutrophils % (auto) 87.1 % (37.0-80.0); Nucleated Red Blood Cells % 0.4 %; Red Blood Cells 5.66 10^6/uL (4.5-5.90); Red Cell Distribution Width 14.7 % (11.8-14.3); White Blood Cell 10.7 10^3/uL (4.4-10.8)
[2021-12-06 12:54] LABS: Albumin 3.5 g/dL (3.4-5.0); BUN/Creatinine Ratio 19.1; Calcium 9.4 mg/dL (8.5-10.1); Potassium 4.5 mmol/L (3.5-5.1)
[2021-12-06 12:57] LABS: Lactic Acid w/Reflex 3.7 mmol/L (0.4-2.0)
[2021-12-06 12:58] LABS: Bilirubin, Total 0.4 mg/dL (0.2-1.0); Total Protein 8.5 g/dL (6.4-8.2)
[2021-12-06 15:13] LABS: Urine Bacteria MOD /hpf (None Seen); Urine Blood 1+ /uL (Negative); Urine Specific Gravity 1.015 (1.001-1.035); Urine WBC 1757 /hpf (0 - 3); Urine WBC Clumps PRESENT /hpf (None Seen)
[2021-12-06] MEDS ORDERED: SODIUM CHLORIDE 0.9% 1,000 ML IV ONE (15:30)
[2021-12-06] MEDS ORDERED: NITROGLYCERIN 0.4 MG SL TAB SL PRN (17:30)
[2021-12-06] MEDS ORDERED: MORPHINE SULFATE INJECTION 2 MG/ML SYRG IV PRN ×2 (17:30→20:45)
[2021-12-06] MEDS ORDERED: LACTATED RINGER'S 1,000 ML IV ONE (17:30)
[2021-12-06] MEDS ORDERED: CLINDAMYCIN 600MG IV 50 ML IV ONE (18:15)
[2021-12-06] MEDS ORDERED: NYSTATIN TOPICAL POWDER 15GM TOP ONE (18:15)
[2021-12-06] MEDS ORDERED: ITRACONAZOLE 100 MG CAP PO ONE (20:30)
[2021-12-06] MEDS ORDERED: levoFLOXacin 750MG 150 ML IV ONE (20:30)
[2021-12-06] MEDS ORDERED: KETOCONAZOLE 2 % TOPICAL CREAM 15GM TOP ONE (20:30)
[2021-12-06] MEDS ORDERED: HYDROCORTONE 1% TOPICAL CREAM 30 GM TUBE TOP ONE (20:30)
[2021-12-06] MEDS ORDERED: ONDANSETRON HCL 4 MG/2 ML VIAL IV PRN (20:45)
[2021-12-06] MEDS ORDERED: HYDROcodone-ACET 5/325MG TAB PO ONE (20:45)
[2021-12-06] MEDS ORDERED: IPRATROPIUM BROM 0.5 MG/2.5ML INH SOL NEB ONE (20:45)
[2021-12-06] MEDS ORDERED: LORazepam 0.5 MG TAB PO PRN (20:45)
[2021-12-06] MEDS ORDERED: LORazepam 2MG/ML-1ML VIAL IV PRN (20:45)
[2021-12-06] MEDS ORDERED: MULTIPLE VITAMINS W/ MINERALS TAB PO ONE (20:45)
[2021-12-06] MEDS ORDERED: HYDROcodone-ACET 5/325MG TAB PO PRN (20:45)
[2021-12-06] MEDS ORDERED: FAMOTIDINE (10MG/ML) 2ML VL IV ONE (20:45)
[2021-12-06] MEDS ORDERED: DOCUSATE SOD 100 MG CAP PO PRN (20:45)
[2021-12-06] MEDS ORDERED: LACTULOSE 20Gm/30ML SOLN PO PRN (20:45)
[2021-12-06] MEDS ORDERED: hydrALAZINE HCL 20 MG/ML VL IV PRN (20:45)
[2021-12-06] MEDS: IPRATROPIUM BROM 0.5 MG/2.5ML INH SOL NEB SCH ×2 (21:13→21:16)
[2021-12-06] MEDS: SODIUM CHLORIDE 0.9% 1,000 ML IV SCH (21:15)
[2021-12-06 21:52] LABS: Magnesium 2.5 mg/dL (1.6-2.6)
[2021-12-06 21:59] LABS: Phenytoin (Dilantin) 7.6 ug/mL (10-20); Phosphorus 3.7 mg/dL (2.5-4.90)
[2021-12-06] MEDS: KETOCONAZOLE 2 % TOPICAL CREAM 15GM TOP SCH (22:00)
[2021-12-06] MEDS: APIXABAN 5 MG TAB PO SCH (22:00)
[2021-12-06] MEDS ORDERED: IPRATROPIUM BROM 0.5 MG/2.5ML INH SOL NEB PRN (22:00)
[2021-12-06] MEDS: HYDROCORTONE 1% TOPICAL CREAM 30 GM TUBE TOP SCH (22:00)
[2021-12-06 23:45] VITALS: BP 103/57
[2021-12-06] MEDS: PHENYTOIN SODIUM 100 MG CAP PO SCH (23:52)
[2021-12-06] MEDS: PHENobarbital 32.4 MG TAB PO SCH (23:52)
[2021-12-06] MEDS: TOPIRAMATE 100 MG TAB PO SCH (23:53)
[2021-12-06] MEDS: ATORVASTATIN 20 MG TAB PO SCH (23:53)
[2021-12-07] VITALS (8 sets, daily range): BP systolic 103–137; BP diastolic 57–79
[2021-12-07] MEDS: SODIUM CHLORIDE 0.9% 1,000 ML IV SCH (09:48)
[2021-12-07] MEDS: FAMOTIDINE (10MG/ML) 2ML VL IV SCH (09:48)
[2021-12-07] MEDS: ASPirin 81 mg TAB PO SCH (09:49)
[2021-12-07] MEDS: TOPIRAMATE 100 MG TAB PO SCH ×2 (09:49→21:33)
[2021-12-07] MEDS: KETOCONAZOLE 2 % TOPICAL CREAM 15GM TOP SCH ×2 (09:49→21:33)
[2021-12-07] MEDS: PHENYTOIN SODIUM 100 MG CAP PO SCH ×2 (09:49→21:32)
[2021-12-07] MEDS: APIXABAN 5 MG TAB PO SCH ×2 (09:49→21:32)
[2021-12-07] MEDS: MULTIPLE VITAMINS W/ MINERALS TAB PO SCH (09:49)
[2021-12-07] MEDS: PHENobarbital 32.4 MG TAB PO SCH ×2 (09:49→21:32)
[2021-12-07] MEDS: ITRACONAZOLE 100 MG CAP PO SCH (10:00)
[2021-12-07 13:10] LABS: Alcohol, Urine < 3.0 mg/dL (0-10); Amphetamine Screen, Urine NEGATIVE (NEGATIVE); Barbiturate Scree,Urine POSITIVE (NEGATIVE); Benzodiazephine Screen, Urine NEGATIVE (NEGATIVE); Cannabinoid Screen, Urine NEGATIVE (NEGATIVE); Cocaine Screen, Urine NEGATIVE (NEGATIVE); Opiate Scree,Urine NEGATIVE (NEGATIVE); Phencyclidine Screen, Urine NEGATIVE (NEGATIVE)
[2021-12-07 13:13] LABS: Protein, Urine 90.6 mg/dL (0.0-11.9)
[2021-12-07] MEDS: HYDROCORTONE 1% TOPICAL CREAM 30 GM TUBE TOP SCH ×2 (14:00→21:33)
[2021-12-07] MEDS: NYSTATIN TOPICAL POWDER 15GM TOP SCH ×2 (14:36→22:00)
[2021-12-07 14:55] LABS: Basophils # (auto) 0 10 ^3/uL (0-0.2); Basophils % (auto) 0.1 % (0.0-2.0); Eosinophils # (auto) 0.2 10 ^3/uL (0-0.8); Eosinophils % (auto) 2.5 % (0.0-7.0); Hematocrit 42.1 % (41.0-53.0); Hemoglobin 14.2 g/dL (13.5-17.5); Lymphocytes # (auto) 0.6 10 ^3/uL (0.4-5.4); Lymphocytes % (auto) 8.2 % (10.0-50.0); Mean Corpuscular Hemoglobin 31.9 pg (28.0-32.0); Mean Corpuscular Hgb Conc. 33.7 g/dL (32.0-36.0); Mean Corpuscular Volume 94.7 fL (80.0-100.0); Monocytes # (auto) 0.5 10 ^3/uL (0-1.3); Monocytes % (auto) 7.7 % (0.0-12.0); Neutrophils # (auto) 5.8 10 ^3/uL (1.6-8.6); Neutrophils % (auto) 81.5 % (37.0-80.0); Nucleated Red Blood Cells % 0.3 %; Red Blood Cells 4.44 10^6/uL (4.5-5.90); Red Cell Distribution Width 14.9 % (11.8-14.3); White Blood Cell 7.1 10^3/uL (4.4-10.8)
[2021-12-07 15:13] LABS: Calcium 8.7 mg/dL (8.5-10.1); Magnesium 2.4 mg/dL (1.6-2.6); Potassium 4.2 mmol/L (3.5-5.1)
[2021-12-07 15:25] LABS: Bilirubin, Total 0.2 mg/dL (0.2-1.0); Phosphorus 2.9 mg/dL (2.5-4.90); Total Protein 7.6 g/dL (6.4-8.2)
[2021-12-07 15:51] LABS: CRP High Sensitivity 17.8 mg/dL (< 0.3)
[2021-12-07 15:52] LABS: BUN/Creatinine Ratio 31.6
[2021-12-07 18:00] LABS: Basophils # (auto) 0 10 ^3/uL (0-0.2); Basophils % (auto) 0.6 % (0.0-2.0); Eosinophils # (auto) 0.1 10 ^3/uL (0-0.8); Eosinophils % (auto) 2.3 % (0.0-7.0); Hematocrit 37.3 % (41.0-53.0); Hemoglobin 12.6 g/dL (13.5-17.5); Lymphocytes # (auto) 0.5 10 ^3/uL (0.4-5.4); Lymphocytes % (auto) 8.1 % (10.0-50.0); Mean Corpuscular Hemoglobin 31.6 pg (28.0-32.0); Mean Corpuscular Hgb Conc. 33.7 g/dL (32.0-36.0); Mean Corpuscular Volume 93.8 fL (80.0-100.0); Monocytes # (auto) 0.6 10 ^3/uL (0-1.3); Monocytes % (auto) 8.5 % (0.0-12.0); Neutrophils # (auto) 5.2 10 ^3/uL (1.6-8.6); Neutrophils % (auto) 80.5 % (37.0-80.0); Nucleated Red Blood Cells % 0.1 %; Red Blood Cells 3.97 10^6/uL (4.5-5.90); Red Cell Distribution Width 14.9 % (11.8-14.3); White Blood Cell 6.5 10^3/uL (4.4-10.8)
[2021-12-07 18:13] LABS: INR 1.18 (0.9-1.15); Partial Thromboplastin Time 48.8 sec (23.6-33.0)
[2021-12-07 18:17] LABS: Calcium 8.3 mg/dL (8.5-10.1); Potassium 3.5 mmol/L (3.5-5.1)
[2021-12-07] MEDS ORDERED: KET2TP TOP (19:00)
[2021-12-07] MEDS ORDERED: ITRA100C2 PO (19:00)
[2021-12-07] MEDS: D5W 5% 1,000 ML IV SCH (19:00)
[2021-12-07] MEDS ORDERED: NYS15PW TOP (19:00)
[2021-12-07] MEDS ORDERED: levoFLOXacin 750MG 150 ML IV SCH (21:00)
[2021-12-07] MEDS: ATORVASTATIN 20 MG TAB PO SCH (21:33)
[2021-12-08 01:29] LABS: Urine Bacteria FEW /hpf (None Seen); Urine Blood 1+ /uL (Negative); Urine Budding Yeast MODERATE /hpf (None Seen); Urine Mucus FEW (None Seen); Urine Specific Gravity 1.018 (1.001-1.035); Urine WBC 132 /hpf (0 - 3); Urine WBC Clumps PRESENT /hpf (None Seen)
[2021-12-08 04:22] VITALS: BP 118/58
[2021-12-08] MEDS: HYDROCORTONE 1% TOPICAL CREAM 30 GM TUBE TOP SCH (05:36)
[2021-12-08] MEDS: D5W 5% 1,000 ML IV SCH (05:38)
[2021-12-08 05:59] LABS: BUN/Creatinine Ratio 40.6; Calcium 8.8 mg/dL (8.5-10.1); Potassium 3.7 mmol/L (3.5-5.1)
[2021-12-08 09:00] VITALS: BP 120/69
[2021-12-08] MEDS: ASPirin 81 mg TAB PO SCH (09:20)
[2021-12-08] MEDS: FAMOTIDINE (10MG/ML) 2ML VL IV SCH (09:20)
[2021-12-08] MEDS: PHENYTOIN SODIUM 100 MG CAP PO SCH (09:21)
[2021-12-08] MEDS: APIXABAN 5 MG TAB PO SCH (09:21)
[2021-12-08] MEDS: TOPIRAMATE 100 MG TAB PO SCH (09:22)
[2021-12-08] MEDS: KETOCONAZOLE 2 % TOPICAL CREAM 15GM TOP SCH (09:22)
[2021-12-08] MEDS: NYSTATIN TOPICAL POWDER 15GM TOP SCH (09:22)
[2021-12-08] MEDS: MULTIPLE VITAMINS W/ MINERALS TAB PO SCH (10:00)
[2021-12-08] MEDS: ITRACONAZOLE 100 MG CAP PO SCH (10:00)
[2021-12-08 10:03] LABS: Basophils # (auto) 0 10 ^3/uL (0-0.2); Basophils % (auto) 0.3 % (0.0-2.0); Eosinophils # (auto) 0.2 10 ^3/uL (0-0.8); Eosinophils % (auto) 4.3 % (0.0-7.0); Hematocrit 38.9 % (41.0-53.0); Lymphocytes # (auto) 0.4 10 ^3/uL (0.4-5.4); Lymphocytes % (auto) 8.9 % (10.0-50.0); Mean Corpuscular Hemoglobin 31.5 pg (28.0-32.0); Mean Corpuscular Hgb Conc. 33.4 g/dL (32.0-36.0); Mean Corpuscular Volume 94.6 fL (80.0-100.0); Monocytes # (auto) 0.3 10 ^3/uL (0-1.3); Monocytes % (auto) 6.7 % (0.0-12.0); Neutrophils # (auto) 3.9 10 ^3/uL (1.6-8.6); Neutrophils % (auto) 79.8 % (37.0-80.0); Nucleated Red Blood Cells % 0.1 %; Red Blood Cells 4.12 10^6/uL (4.5-5.90); Red Cell Distribution Width 14.6 % (11.8-14.3); White Blood Cell 4.8 10^3/uL (4.4-10.8)
[2021-12-08] MEDS: PHENobarbital 32.4 MG TAB PO SCH (10:08)
[2021-12-08] MEDS ORDERED: ERGOCALCIFEROL 50,000 UNIT(1.25MG) CAP PO SCH (10:45)
[2021-12-08] MEDS ORDERED: D5W 5% 1,000 ML IV SCH (10:45)
[2021-12-08] MEDS ORDERED: LEVOTHYROXINE SODIUM 25 MCG TAB PO SCH (11:15)
[2021-12-08] MEDS ORDERED: LEVO500T31 PO (11:46)
[2021-12-08] MEDS ORDERED: LEVO25TA6 PO (11:46)
[2021-12-08 13:00] VITALS: BP 152/77
== END 2021-12-08 13:47 | disposition home or self-care (01) | DRG 698 ==
LOC: EDBD 11:41 → EDUNIT# 11:41 → ER 11:41 → OVERFLOW 17:20 → CENTRAL 23:08
PROVIDERS: ADMIT Hospitalist; ATTEND Internal Medicine
PROC: 0T2BX0Z Change Drainage Device in Bladder, External Approach (ICD-10-PCS; principal; 2021-12-06)
PROC: 05HD33Z Insertion of Infusion Device into Right Cephalic Vein, Percutaneous Approach (ICD-10-PCS; 2021-12-07)
PROC: B54MZZA Ultrasonography of Right Upper Extremity Veins, Guidance (ICD-10-PCS; 2021-12-07)
DX: T83.091A Other mechanical complication of indwelling urethral catheter, initial encounter (principal); A41.9 Sepsis, unspecified organism; N17.0 Acute kidney failure with tubular necrosis; N39.0 Urinary tract infection, site not specified; E87.0 Hyperosmolality and hypernatremia; L89.159 Pressure ulcer of sacral region, unspecified stage; N48.22 Cellulitis of corpus cavernosum and penis; Z74.01 Bed confinement status; L21.9 Seborrheic dermatitis, unspecified; K64.3 Fourth degree hemorrhoids; E03.9 Hypothyroidism, unspecified; E78.5 Hyperlipidemia, unspecified; E86.0 Dehydration; I12.9 Hypertensive chronic kidney disease with stage 1 through stage 4 chronic kidney disease, or unspecified chronic kidney disease; I25.10 Atherosclerotic heart disease of native coronary artery without angina pectoris; N28.89 Other specified disorders of kidney and ureter; B96.20 Unspecified Escherichia coli [E. coli] as the cause of diseases classified elsewhere; E55.9 Vitamin D deficiency, unspecified; Y84.6 Urinary catheterization as the cause of abnormal reaction of the patient, or of later complication, without mention of misadventure at the time of the procedure; N18.32 Chronic kidney disease, stage 3b; N31.2 Flaccid neuropathic bladder, not elsewhere classified; Z20.822 Contact with and (suspected) exposure to COVID-19; G40.909 Epilepsy, unspecified, not intractable, without status epilepticus; Z87.442 Personal history of urinary calculi; Z82.49 Family history of ischemic heart disease and other diseases of the circulatory system; Y92.89 Other specified places as the place of occurrence of the external cause; Z87.820 Personal history of traumatic brain injury
CPT/HCPCS: 36415; 71045; 76775; 80048; 80053; 80061; 80184; 80185; 80201; 80307; 81001; 82306; 82570; 82728; 83036; 83605; 83615; 83735; 83880; 83970; 84100; 84156; 84300; 84443; 84481; 84484; 85025; 85379; 85610; 85652; 85730; 86141; 87040; 87086; 87088; 87186; 87426; 96361; 96365; 96366; 96367; 96375; G0378; J0696; J1956; J3490

== ENCOUNTER 2022-01-20 11:53 | Inpatient (IN) | payer OTHER ==
[~2022-01-20] VITALS: Ht 185.4 cm; Wt 99.7 kg
[2022-01-20] MEDS: PHENOBARBITAL 100 MG PO SCH (01:00)
[~2022-01-20 11:53] MED LIST changes: +ITRA100C2 PO; +KET2TP TOP; +LEVO25TA6 PO; +LEVO500T31 PO; +NYS15PW TOP
[2022-01-20] MEDS ORDERED: IOHEXOL 300 MG/ML 100ML BOTTLE IJ ONE (14:56)
[2022-01-20] MEDS ORDERED: IOHEXOL 350 MG/ML 100ML IJ ONE (17:54)
[2022-01-20 18:12] LABS: Basophils # (auto) 0 10 ^3/uL (0-0.2); Basophils % (auto) 0.4 % (0.0-2.0); Eosinophils # (auto) 0.1 10 ^3/uL (0-0.8); Eosinophils % (auto) 1.4 % (0.0-7.0); Hematocrit 46.6 % (41.0-53.0); Hemoglobin 15.9 g/dL (13.5-17.5); Lymphocytes # (auto) 0.7 10 ^3/uL (0.4-5.4); Lymphocytes % (auto) 6.5 % (10.0-50.0); Mean Corpuscular Hemoglobin 31.9 pg (28.0-32.0); Mean Corpuscular Hgb Conc. 34.1 g/dL (32.0-36.0); Mean Corpuscular Volume 93.6 fL (80.0-100.0); Monocytes # (auto) 0.7 10 ^3/uL (0-1.3); Monocytes % (auto) 6.8 % (0.0-12.0); Neutrophils # (auto) 8.7 10 ^3/uL (1.6-8.6); Neutrophils % (auto) 84.9 % (37.0-80.0); Nucleated Red Blood Cells % 0.3 %; Red Blood Cells 4.97 10^6/uL (4.5-5.90); Red Cell Distribution Width 15.5 % (11.8-14.3); White Blood Cell 10.2 10^3/uL (4.4-10.8)
[2022-01-20 18:21] LABS: Albumin 3.6 g/dL (3.4-5.0); BUN/Creatinine Ratio 22.9; Calcium 9.3 mg/dL (8.5-10.1); Potassium 4.2 mmol/L (3.5-5.1)
[2022-01-20 18:27] LABS: Bilirubin, Total 0.4 mg/dL (0.2-1.0); Total Protein 7.5 g/dL (6.4-8.2)
[2022-01-20 18:29] LABS: Lactic Acid w/Reflex 2.7 mmol/L (0.4-2.0)
[2022-01-20] MEDS ORDERED: ONDANSETRON HCL 4 MG/2 ML VIAL IV PRN (21:30)
[2022-01-20] MEDS ORDERED: TEMAZEPAM 15 MG CAP PO PRN (21:30)
[2022-01-20] MEDS ORDERED: HYDROcodone-ACET 5/325MG TAB PO PRN (21:30)
[2022-01-20] MEDS ORDERED: SODIUM CHLORIDE 0.9% 500 ML IV ONE (21:30)
[2022-01-20] MEDS ORDERED: ACETAMINOPHEN 325 MG TAB PO PRN (21:30)
[2022-01-20] MEDS ORDERED: cefTRIAXone 1GM/50ML D5W 50 ML IV ONE (21:30)
[2022-01-20] MEDS ORDERED: CLINDAMYCIN 300MG IV 50 ML IV SCH (22:00)
[2022-01-20] MEDS: PHENYTOIN SODIUM 100 MG CAP PO SCH (23:28)
[2022-01-20] MEDS: TOPIRAMATE 100 MG TAB PO SCH (23:28)
[2022-01-21 01:37] VITALS: BP 135/88
[2022-01-21 04:35] VITALS: BP 118/80
[2022-01-21] MEDS: LEVOTHYROXINE SODIUM 25 MCG TAB PO SCH (06:31)
[2022-01-21 07:33] LABS: Urine Bacteria FEW /hpf (None Seen); Urine Blood 1+ /uL (Negative); Urine Mucus FEW (None Seen); Urine WBC 240 /hpf (0 - 3)
[2022-01-21 08:35] VITALS: BP 121/64
[2022-01-21] MEDS ORDERED: cefTRIAXone 1GM/50ML D5W 50 ML IV SCH (09:00)
[2022-01-21] MEDS: PHENYTOIN SODIUM 100 MG CAP PO SCH ×2 (09:38→21:30)
[2022-01-21] MEDS: PANTOPRAZOLE 40 MG TAB PO SCH (09:38)
[2022-01-21] MEDS: TOPIRAMATE 100 MG TAB PO SCH ×2 (09:39→21:30)
[2022-01-21] MEDS: PHENOBARBITAL 100 MG PO SCH ×2 (09:46→22:19)
[2022-01-21] MEDS: ENOXAPARIN SOD 100 MG/1 ML SYRINGE SC SCH ×2 (09:54→21:29)
[2022-01-21] MEDS ORDERED: ENOXAPARIN SOD 40 MG/0.4 ML SYRINGE SC SCH (10:00)
[2022-01-21 12:26] VITALS: BP 131/75
[2022-01-21 14:27] LABS: Basophils # (auto) 0 10 ^3/uL (0-0.2); Basophils % (auto) 0.6 % (0.0-2.0); Eosinophils # (auto) 0.2 10 ^3/uL (0-0.8); Eosinophils % (auto) 3.5 % (0.0-7.0); Hematocrit 41.2 % (41.0-53.0); Hemoglobin 14.3 g/dL (13.5-17.5); Lymphocytes # (auto) 0.7 10 ^3/uL (0.4-5.4); Lymphocytes % (auto) 12.5 % (10.0-50.0); Mean Corpuscular Hgb Conc. 34.7 g/dL (32.0-36.0); Mean Corpuscular Volume 92.1 fL (80.0-100.0); Monocytes # (auto) 0.5 10 ^3/uL (0-1.3); Monocytes % (auto) 8.9 % (0.0-12.0); Neutrophils # (auto) 4.2 10 ^3/uL (1.6-8.6); Neutrophils % (auto) 74.5 % (37.0-80.0); Nucleated Red Blood Cells % 0.2 %; Red Blood Cells 4.48 10^6/uL (4.5-5.90); Red Cell Distribution Width 15.5 % (11.8-14.3); White Blood Cell 5.7 10^3/uL (4.4-10.8)
[2022-01-21 14:44] LABS: INR 1.08 (0.9-1.15); Partial Thromboplastin Time 68.6 sec (23.6-33.0)
[2022-01-21 14:46] LABS: Potassium 3.8 mmol/L (3.5-5.1)
[2022-01-21 14:51] LABS: BUN/Creatinine Ratio 26.9; Calcium 8.9 mg/dL (8.5-10.1)
[2022-01-21] MEDS ORDERED: VANCOMYCIN 1GM/250ML 250 ML IV ONE (16:15)
[2022-01-21] MEDS ORDERED: levoFLOXacin 500MG 100 ML IV SCH (16:15)
[2022-01-21] MEDS ORDERED: VANCOMYCIN PER PHARMACY 0 MG IV SCH (16:15)
[2022-01-21 16:41] VITALS: BP 140/73
[2022-01-21] MEDS: VANCOMYCIN 1GM/250ML 250 ML IV SCH ×2 (18:52→20:49)
[2022-01-21 21:39] VITALS: BP 122/76
[2022-01-22 04:25] VITALS: BP 151/87
[2022-01-22] MEDS ORDERED: VANCOMYCIN 1GM/250ML 250 ML IV SCH (05:00)
[2022-01-22] MEDS: VANCOMYCIN 1GM/250ML 250 ML IV SCH ×3 (06:22→21:53)
[2022-01-22 09:00] VITALS: BP 134/71
[2022-01-22] MEDS: LEVOTHYROXINE SODIUM 25 MCG TAB PO SCH (09:31)
[2022-01-22] MEDS: PHENYTOIN SODIUM 100 MG CAP PO SCH ×2 (09:31→21:55)
[2022-01-22] MEDS: TOPIRAMATE 100 MG TAB PO SCH ×2 (09:32→21:58)
[2022-01-22] MEDS: PANTOPRAZOLE 40 MG TAB PO SCH (09:32)
[2022-01-22] MEDS: ENOXAPARIN SOD 100 MG/1 ML SYRINGE SC SCH ×2 (09:32→22:02)
[2022-01-22 11:34] LABS: Basophils # (auto) 0 10 ^3/uL (0-0.2); Basophils % (auto) 0.4 % (0.0-2.0); Eosinophils # (auto) 0.1 10 ^3/uL (0-0.8); Eosinophils % (auto) 2.5 % (0.0-7.0); Hemoglobin 14.9 g/dL (13.5-17.5); Lymphocytes # (auto) 0.5 10 ^3/uL (0.4-5.4); Lymphocytes % (auto) 9.2 % (10.0-50.0); Mean Corpuscular Hemoglobin 32.3 pg (28.0-32.0); Mean Corpuscular Hgb Conc. 33.8 g/dL (32.0-36.0); Mean Corpuscular Volume 95.4 fL (80.0-100.0); Monocytes # (auto) 0.4 10 ^3/uL (0-1.3); Monocytes % (auto) 8.7 % (0.0-12.0); Neutrophils % (auto) 79.2 % (37.0-80.0); Nucleated Red Blood Cells % 0.1 %; Red Blood Cells 4.61 10^6/uL (4.5-5.90); Red Cell Distribution Width 15.4 % (11.8-14.3); White Blood Cell 5.1 10^3/uL (4.4-10.8)
[2022-01-22 11:47] LABS: Calcium 9.2 mg/dL (8.5-10.1); Potassium 4.1 mmol/L (3.5-5.1)
[2022-01-22 11:54] LABS: BUN/Creatinine Ratio 16.9
[2022-01-22] MEDS: PHENOBARBITAL 100 MG PO SCH ×2 (12:45→21:57)
[2022-01-22 13:00] VITALS: BP 151/92
[2022-01-22 17:00] VITALS: BP 151/91
[2022-01-22 22:00] VITALS: BP 135/76
[2022-01-23 05:00] VITALS: BP 138/79
[2022-01-23] MEDS: VANCOMYCIN 1GM/250ML 250 ML IV SCH ×3 (06:00→23:18)
[2022-01-23 07:02] LABS: BUN/Creatinine Ratio 15.4; Calcium 8.9 mg/dL (8.5-10.1); Potassium 3.6 mmol/L (3.5-5.1)
[2022-01-23 07:11] LABS: Basophils # (auto) 0 10 ^3/uL (0-0.2); Basophils % (auto) 0.4 % (0.0-2.0); Eosinophils # (auto) 0.1 10 ^3/uL (0-0.8); Eosinophils % (auto) 2.4 % (0.0-7.0); Hematocrit 39.6 % (41.0-53.0); Hemoglobin 13.7 g/dL (13.5-17.5); Lymphocytes # (auto) 0.6 10 ^3/uL (0.4-5.4); Lymphocytes % (auto) 11.7 % (10.0-50.0); Mean Corpuscular Hemoglobin 32.7 pg (28.0-32.0); Mean Corpuscular Hgb Conc. 34.5 g/dL (32.0-36.0); Mean Corpuscular Volume 94.9 fL (80.0-100.0); Monocytes # (auto) 0.5 10 ^3/uL (0-1.3); Monocytes % (auto) 11.2 % (0.0-12.0); Neutrophils # (auto) 3.6 10 ^3/uL (1.6-8.6); Neutrophils % (auto) 74.3 % (37.0-80.0); Nucleated Red Blood Cells % 0.1 %; Red Blood Cells 4.18 10^6/uL (4.5-5.90); Red Cell Distribution Width 15.1 % (11.8-14.3); White Blood Cell 4.8 10^3/uL (4.4-10.8)
[2022-01-23 09:00] VITALS: BP 130/66
[2022-01-23] MEDS: LEVOTHYROXINE SODIUM 25 MCG TAB PO SCH (09:35)
[2022-01-23] MEDS: PHENYTOIN SODIUM 100 MG CAP PO SCH ×2 (09:36→22:42)
[2022-01-23] MEDS: TOPIRAMATE 100 MG TAB PO SCH ×2 (09:38→22:43)
[2022-01-23] MEDS: PANTOPRAZOLE 40 MG TAB PO SCH (09:38)
[2022-01-23] MEDS: ENOXAPARIN SOD 100 MG/1 ML SYRINGE SC SCH ×2 (09:38→22:43)
[2022-01-23] MEDS: PHENOBARBITAL 100 MG PO SCH ×2 (10:20→22:42)
[2022-01-23] MEDS ORDERED: DOCUSATE SOD 100 MG CAP PO PRN (12:30)
[2022-01-23] MEDS ORDERED: POLYETHYLENE GLYCOL 17 GM PWDR PO ONE (12:30)
[2022-01-23 22:00] VITALS: BP 129/65
[2022-01-24 05:15] VITALS: BP 114/59
[2022-01-24] MEDS: LEVOTHYROXINE SODIUM 25 MCG TAB PO SCH (06:40)
[2022-01-24 09:19] VITALS: BP 105/56
[2022-01-24 09:20] LABS: Basophils # (auto) 0 10 ^3/uL (0-0.2); Basophils % (auto) 0.4 % (0.0-2.0); Eosinophils # (auto) 0.2 10 ^3/uL (0-0.8); Eosinophils % (auto) 4.7 % (0.0-7.0); Hematocrit 36.9 % (41.0-53.0); Hemoglobin 12.7 g/dL (13.5-17.5); Lymphocytes # (auto) 0.5 10 ^3/uL (0.4-5.4); Lymphocytes % (auto) 14.6 % (10.0-50.0); Mean Corpuscular Hemoglobin 32.3 pg (28.0-32.0); Mean Corpuscular Hgb Conc. 34.6 g/dL (32.0-36.0); Mean Corpuscular Volume 93.5 fL (80.0-100.0); Monocytes # (auto) 0.4 10 ^3/uL (0-1.3); Monocytes % (auto) 10.6 % (0.0-12.0); Neutrophils # (auto) 2.6 10 ^3/uL (1.6-8.6); Neutrophils % (auto) 69.7 % (37.0-80.0); Nucleated Red Blood Cells % 0.2 %; Red Blood Cells 3.95 10^6/uL (4.5-5.90); White Blood Cell 3.7 10^3/uL (4.4-10.8)
[2022-01-24] MEDS: PHENYTOIN SODIUM 100 MG CAP PO SCH ×2 (09:26→22:09)
[2022-01-24] MEDS: PANTOPRAZOLE 40 MG TAB PO SCH (09:26)
[2022-01-24] MEDS: TOPIRAMATE 100 MG TAB PO SCH ×2 (09:26→22:09)
[2022-01-24] MEDS: ENOXAPARIN SOD 100 MG/1 ML SYRINGE SC SCH ×2 (09:28→22:08)
[2022-01-24] MEDS: PHENOBARBITAL 100 MG PO SCH ×2 (10:00→22:09)
[2022-01-24] MEDS: VANCOMYCIN 1GM/250ML 250 ML IV SCH (10:00)
[2022-01-24 10:07] LABS: BUN/Creatinine Ratio 18.8; Calcium 8.4 mg/dL (8.5-10.1); Potassium 3.7 mmol/L (3.5-5.1)
[2022-01-24 13:00] VITALS: BP 132/69
[2022-01-24] MEDS ORDERED: VANCOMYCIN 750mg/250ml 250 ML IV SCH (13:00)
[2022-01-24] MEDS ORDERED: APIX5TAB OR (17:19)
[2022-01-24 17:21] VITALS: BP 119/63
[2022-01-24 22:00] VITALS: BP 134/68
[2022-01-25 05:00] VITALS: BP 138/71
[2022-01-25] MEDS: LEVOTHYROXINE SODIUM 25 MCG TAB PO SCH (06:43)
[2022-01-25 09:00] VITALS: BP 158/79
[2022-01-25] MEDS: PANTOPRAZOLE 40 MG TAB PO SCH (09:36)
[2022-01-25] MEDS: PHENYTOIN SODIUM 100 MG CAP PO SCH ×2 (09:36→21:16)
[2022-01-25] MEDS: TOPIRAMATE 100 MG TAB PO SCH ×2 (09:36→21:16)
[2022-01-25] MEDS: PHENOBARBITAL 100 MG PO SCH ×2 (09:36→21:37)
[2022-01-25] MEDS: ENOXAPARIN SOD 100 MG/1 ML SYRINGE SC SCH ×2 (09:37→21:16)
[2022-01-25 13:00] VITALS: BP 127/76
[2022-01-25 15:50] VITALS: BP 127/76
[2022-01-25 22:00] VITALS: BP 148/82
[2022-01-26 05:00] VITALS: BP 124/78
[2022-01-26] MEDS: LEVOTHYROXINE SODIUM 25 MCG TAB PO SCH (06:12)
[2022-01-26 06:48] LABS: Albumin 3.1 g/dL (3.4-5.0)
[2022-01-26] MEDS: TOPIRAMATE 100 MG TAB PO SCH (09:16)
[2022-01-26] MEDS: PANTOPRAZOLE 40 MG TAB PO SCH (09:16)
[2022-01-26] MEDS: PHENYTOIN SODIUM 100 MG CAP PO SCH (09:17)
[2022-01-26] MEDS: ENOXAPARIN SOD 100 MG/1 ML SYRINGE SC SCH (10:00)
[2022-01-26] MEDS: PHENOBARBITAL 100 MG PO SCH (11:45)
[2022-01-26 13:00] VITALS: BP 138/80
[2022-01-26 14:01] LABS: INR 1.05 (0.9-1.15); Partial Thromboplastin Time 52.7 sec (23.6-33.0)
[2022-01-26] MEDS ORDERED: LIDOCAINE 1% (LOCAL ANESTH.) PF 5ml SDV ID ONE (17:00)
[2022-01-26] MEDS ORDERED: SODIUM CHLOR 0.9% PF (SALINE LOCK) 10ML VIAL/SYR IV SCH (22:00)
== END 2022-01-26 20:00 | disposition home health service (06) | DRG 300 ==
LOC: ER 11:53 → OVERFLOW 21:30 → WEST WING 23:56
PROVIDERS: ADMIT Nurse Practitioner; ATTEND Internal Medicine
PROC: 02HV33Z Insertion of Infusion Device into Superior Vena Cava, Percutaneous Approach (ICD-10-PCS; principal; 2022-01-26)
PROC: B548ZZA Ultrasonography of Superior Vena Cava, Guidance (ICD-10-PCS; 2022-01-26)
DX: I82.411 Acute embolism and thrombosis of right femoral vein (principal); L03.115 Cellulitis of right lower limb; G81.90 Hemiplegia, unspecified affecting unspecified side; G82.20 Paraplegia, unspecified; M86.8X7 Other osteomyelitis, ankle and foot; L97.319 Non-pressure chronic ulcer of right ankle with unspecified severity; E11.69 Type 2 diabetes mellitus with other specified complication; I82.431 Acute embolism and thrombosis of right popliteal vein; E03.9 Hypothyroidism, unspecified; S91.301A Unspecified open wound, right foot, initial encounter; X58.XXXA Exposure to other specified factors, initial encounter; S90.31XA Contusion of right foot, initial encounter; G40.909 Epilepsy, unspecified, not intractable, without status epilepticus; K59.00 Constipation, unspecified; N20.0 Calculus of kidney; Z74.01 Bed confinement status; Z87.820 Personal history of traumatic brain injury; Z87.442 Personal history of urinary calculi; Z82.49 Family history of ischemic heart disease and other diseases of the circulatory system; Z90.49 Acquired absence of other specified parts of digestive tract; Y93.89 Activity, other specified; Y92.89 Other specified places as the place of occurrence of the external cause; Y99.8 Other external cause status; Z87.440 Personal history of urinary (tract) infections
CPT/HCPCS: 36415; 36569; 71045; 73701; 74018; 74176; 78315; 80048; 80053; 80185; 80202; 81001; 82040; 82565; 82962; 83605; 84484; 85025; 85610; 85730; 87040; 87077; 87086; 87186; 87205; 93971; 96365; G0378; J0696; J3490